=== PATIENT | male | born 1950 | race Two or more races ===

== ENCOUNTER 2023-03-07 02:43 | Inpatient (IN) | payer MEDICARE ==
[~2023-03-07] VITALS: Ht 172.7 cm; Wt 82.1 kg
[2023-03-07 06:44] LABS: BASOPHILS % 1.3 % (0.0-2.0); EOSINOPHILS % 2.9 % (0.0-5.0); HEMATOCRIT. 38.1 % (42.0-52.0); LYMPHOCYTES % 30.6 % (20.0-50.0); MEAN CORPUSCULAR HEMOGLOBIN 31.3 pg (28.0-32.0); MEAN CORPUSCULAR HGB CONC 34.3 g/dL (31.0-37.0); MEAN CORPUSCULAR VOLUME 91.3 fL (80.0-94.0); MEAN PLATELET VOLUME 8.6 fl (7.4-10.4); MONOCYTES % 12.3 % (2.0-8.0); NEUTROPHILS % 52.9 % (40.0-76.0); PLATELET 243 x1000/uL (130-400); RED BLOOD CELL COUNT 4.17 mill/uL (4.7-6.1); RED CELL DISTRIBUTION WIDTH 14.1 % (11.6-14.6); WHITE BLOOD COUNT 6.6 x1000/uL (4.5-11.0)
[2023-03-07 06:51] LABS: CHLORIDE 96 mEq/L (98-107); INDEX HEMOLYSI 1 (1-3); INDEX ICTERIC 1 (1-4); INDEX LIPEMIC 1 (1-3); POTASSIUM 4.6 mEq/L (3.5-5.1); SODIUM 126 mEq/L (136-145)
[2023-03-07 07:03] LABS: ALANINE AMINOTRANSFERASE 35 IU/L (13-61); ALBUMIN 3.7 g/dL (3.4-5.0); ASPARTATE AMINOTRANSFERASE 24 IU/L (15-37); CALCIUM 9.1 mg/dL (8.5-10.1); CARBON DIOXIDE 23 mEq/L (21-32); CREATININE 0.7 mg/dL (0.6-1.3); GLUCOSE 200 mg/dL (70-105); NT PRO B-TYPE NATRIURETIC PEP 1375 pg/mL (5-125); PROTEIN TOTAL 7.1 g/dL (6.0-8.3); UREA NITROGEN BLOOD 7 mg/dL (7-21)
[2023-03-07 07:09] LABS: TROPONIN I HIGH SENSITIVITY 101 ng/L (<78)
[2023-03-07 07:12] LABS: CLARITY URINE CLEAR (CLEAR); COLOR URINE YELLOW (YELLOW); GLUCOSE URINE TRACE (NEGATIVE); KETONES URINE 1+ (NEGATIVE); LEUKOCYTE ESTERASE URINE NEGATIVE (NEGATIVE); NITRITE URINE NEGATIVE (NEGATIVE); OCCULT BLOOD URINE NEGATIVE (NEGATIVE); PH URINE 6.5 (4.5-8.0); PROTEIN URINE TRACE (NEGATIVE)
[2023-03-07 07:15] LABS: BACTERIA URINE NONE SEEN; RBC URINE NONE SEEN /hpf (0-2); SQUAMOUS EPITHELIAL CELL URINE NONE SEEN /lpf (RARE/1+); WBC URINE NONE SEEN /hpf (0-2); YEAST URINE NONE SEEN
[2023-03-07] MEDS ORDERED: DEXTROSE 50% WATER 50ML SYRINGE IV PRN (10:15)
[2023-03-07] MEDS ORDERED: ACETAMINOPHEN 325MG TABLET PO PRN ×2 (10:15)
[2023-03-07] MEDS ORDERED: GUAIFENESIN 200MG/10ML SUGAR FREE UDC PO PRN (10:15)
[2023-03-07] MEDS ORDERED: ONDANSETRON HCL 4MG/2ML INJ IV PRN (10:15)
[2023-03-07] MEDS ORDERED: IPRATROPIUM/ALBUTEROL 0.5-3(2.5)MG/3ML NEB NEB PRN (10:15)
[2023-03-07] MEDS ORDERED: HYDRALAZINE HCL 25MG TABLET PO PRN (10:15)
[2023-03-07] MEDS ORDERED: MAGNESIUM/ALUMINUM HYDROXIDE/SIMETHICONE 30ML UDC PO PRN (10:15)
[2023-03-07] MEDS ORDERED: ENOXAPARIN 40MG/0.4ML SYR SUBCUT SCH (10:30)
[2023-03-07 12:29] LABS: CREATINE KINASE MB FRACTION 5.2 ng/mL (0.5-3.6)
[2023-03-07 14:30] VITALS: BP 138/87; PULSE 99; RESP 18; TEMP 98.1
[2023-03-07 15:30] VITALS: BP 138/87; PULSE 99; RESP 18; TEMP 98.1
[2023-03-07 16:00] VITALS: BP 138/91; PULSE 92; RESP 20; TEMP 98.2
[2023-03-07] MEDS: BLOOD SUGAR DIAGNOSTIC STRIP TEST SCH ×2 (17:55→20:44)
[2023-03-07] MEDS: SODIUM CHLORIDE 0.9% 1,000 ML IV SCH (17:56)
[2023-03-07] MEDS: INSULIN LISPRO 100 UNITS/ML SUBCUT SCH ×2 (18:11→20:44)
[2023-03-07 18:36] LABS: CREATINE KINASE MB FRACTION 4.9 ng/mL (0.5-3.6)
[2023-03-07 20:00] VITALS: BP 113/81; PULSE 89; RESP 18; TEMP 97.8
[2023-03-07] MEDS ORDERED: ENOXAPARIN 80MG/0.8ML SYR SUBCUT NR (20:00)
[2023-03-08] VITALS: BP 142/82; PULSE 93; RESP 20; TEMP 98.6
[2023-03-08 01:55] LABS: CREATINE KINASE MB FRACTION 4.2 ng/mL (0.5-3.6)
[2023-03-08 04:00] VITALS: BP 127/81; PULSE 88; RESP 20; TEMP 98
[2023-03-08] MEDS: BLOOD SUGAR DIAGNOSTIC STRIP TEST SCH ×4 (06:25→20:57)
[2023-03-08] MEDS: INSULIN LISPRO 100 UNITS/ML SUBCUT SCH ×4 (06:51→21:03)
[2023-03-08 07:05] LABS: INR 1.1; PROTHROMBIN TIME 11.3 sec (9.6-11.0)
[2023-03-08 08:00] VITALS: BP 104/64; PULSE 90; RESP 18; TEMP 97.5
[2023-03-08] MEDS ORDERED: PNEUMOCOCCAL 23-VAL P-SAC VAC 0.5 ML IM ONE (09:00)
[2023-03-08] MEDS: SODIUM CHLORIDE 0.9% 1,000 ML IV SCH ×3 (09:05→21:39)
[2023-03-08] MEDS: ASPIRIN 81MG TABLET PO SCH (09:07)
[2023-03-08] MEDS: ENOXAPARIN 80MG/0.8ML SYR SUBCUT SCH ×2 (09:08→21:02)
[2023-03-08 09:32] LABS: T4 FREE 1.27 ng/dL (0.76-1.46); THYROID STIMULATING HORMONE 1.2 uIU/mL (0.36-3.74)
[2023-03-08 12:00] VITALS: BP 126/85; PULSE 90; RESP 18; TEMP 97.8
[2023-03-08 16:00] VITALS: BP 131/85; PULSE 89; RESP 18; TEMP 97.7
[2023-03-08 20:00] VITALS: BP 121/77; PULSE 64; RESP 17; TEMP 97.5
[2023-03-09] VITALS: BP 122/75; PULSE 90; RESP 18; TEMP 97.5
[2023-03-09 04:00] VITALS: BP 143/76; PULSE 84; RESP 17; TEMP 97.5
[2023-03-09] MEDS: SODIUM CHLORIDE 0.9% 1,000 ML IV SCH ×2 (05:55→14:23)
[2023-03-09] MEDS: BLOOD SUGAR DIAGNOSTIC STRIP TEST SCH ×5 (06:20→20:30)
[2023-03-09] MEDS: INSULIN LISPRO 100 UNITS/ML SUBCUT SCH ×4 (06:29→20:51)
[2023-03-09 08:00] VITALS: BP 131/89; PULSE 88; RESP 19; TEMP 98
[2023-03-09] MEDS: ENOXAPARIN 80MG/0.8ML SYR SUBCUT SCH ×2 (09:07→20:32)
[2023-03-09] MEDS: ASPIRIN 81MG TABLET PO SCH (09:07)
[2023-03-09 12:00] VITALS: BP 138/76; PULSE 93; RESP 20; TEMP 97.8
[2023-03-09] MEDS: CARVEDILOL 3.125 MG TABLET PO SCH (12:35)
[2023-03-09] MEDS: LOSARTAN POTASSIUM 25 MG TABLET PO SCH (12:35)
[2023-03-09 16:00] VITALS: BP 136/78; PULSE 88; RESP 20; TEMP 97.4
[2023-03-09 20:00] VITALS: BP 114/78; PULSE 94; RESP 20; TEMP 97.3
[2023-03-10] VITALS: BP_SYST 112; BP_SYST 126; BP_DIAS 76; BP_DIAS 78; PULSE 87; PULSE 94; RESP 17; RESP 18; TEMP 97.3; TEMP 97.5
[2023-03-10] MEDS: SODIUM CHLORIDE 0.9% 1,000 ML IV SCH ×3 (03:03→21:45)
[2023-03-10 04:00] VITALS: BP 124/92; PULSE 90; RESP 17; TEMP 98
[2023-03-10] MEDS ORDERED: NICARDIPINE 100MCG/ML 10ML VIAL (CATH LAB) IV ONE (07:00)
[2023-03-10] MEDS ORDERED: NITROGLYCERIN 50MCG/ML 10ML VIAL (CATH LAB) IV ONE (07:00)
[2023-03-10] MEDS: BLOOD SUGAR DIAGNOSTIC STRIP TEST SCH ×4 (07:09→20:02)
[2023-03-10] MEDS: INSULIN LISPRO 100 UNITS/ML SUBCUT SCH ×4 (07:14→20:01)
[2023-03-10 08:00] VITALS: BP 146/89; PULSE 89; RESP 18; TEMP 97.7
[2023-03-10] MEDS: ASPIRIN 81MG TABLET PO SCH ×2 (08:45→14:32)
[2023-03-10] MEDS: ENOXAPARIN 80MG/0.8ML SYR SUBCUT SCH ×2 (08:45→20:02)
[2023-03-10] MEDS: LOSARTAN POTASSIUM 25 MG TABLET PO SCH ×2 (08:45→13:46)
[2023-03-10] MEDS: CARVEDILOL 3.125 MG TABLET PO SCH ×2 (08:45→13:45)
[2023-03-10] MEDS ORDERED: HEPARIN 1000 UNITS/ML 10ML ONE (09:01)
[2023-03-10] MEDS ORDERED: MIDAZOLAM HCL 2 MG/2 ML VIAL ONE (09:25)
[2023-03-10] MEDS ORDERED: FENTANYL CITRATE/PF 50MCG/ML 2ML VIAL ONE (09:25)
[2023-03-10] MEDS ORDERED: LIDOCAINE HCL/PF 2% 20MG/ML 5 ML/VIAL ONE (09:25)
[2023-03-10] MEDS ORDERED: IODIXANOL 320MG/ML 100 ML BOTTLE IV ONE (09:26)
[2023-03-10] MEDS ORDERED: ATROPINE SULFATE 1MG/10ML SYR IV PRN (09:30)
[2023-03-10 15:30] VITALS: BP 138/90; PULSE 91; RESP 16; TEMP 97.8
[2023-03-10 15:45] VITALS: BP 145/89; PULSE 91; RESP 15
[2023-03-10] MEDS ORDERED: FUROSEMIDE 40MG/4ML VIAL IVP NR (19:15)
[2023-03-10 20:00] VITALS: BP 148/111; PULSE 87; RESP 17; TEMP 97.7
[2023-03-11] VITALS: BP 147/75; PULSE 85; RESP 17; TEMP 97.8
[2023-03-11 04:00] VITALS: BP 131/76; PULSE 80; RESP 18; TEMP 97.4
[2023-03-11 06:30] LABS: BASOPHILS % 0.7 % (0.0-2.0); EOSINOPHILS % 4.8 % (0.0-5.0); HEMATOCRIT. 38.3 % (42.0-52.0); HEMOGLOBIN. 13.1 g/dL (14.0-18.0); LYMPHOCYTES % 22.3 % (20.0-50.0); MEAN CORPUSCULAR HEMOGLOBIN 31.4 pg (28.0-32.0); MEAN CORPUSCULAR HGB CONC 34.2 g/dL (31.0-37.0); MEAN CORPUSCULAR VOLUME 91.7 fL (80.0-94.0); MEAN PLATELET VOLUME 8.9 fl (7.4-10.4); MONOCYTES % 10.7 % (2.0-8.0); NEUTROPHILS % 61.5 % (40.0-76.0); PLATELET 244 x1000/uL (130-400); RED BLOOD CELL COUNT 4.17 mill/uL (4.7-6.1); RED CELL DISTRIBUTION WIDTH 14.4 % (11.6-14.6); WHITE BLOOD COUNT 7.5 x1000/uL (4.5-11.0)
[2023-03-11 06:42] LABS: CHLORIDE 94 mEq/L (98-107); INDEX HEMOLYSI 1 (1-3); INDEX ICTERIC 1 (1-4); INDEX LIPEMIC 1 (1-3); POTASSIUM 4.3 mEq/L (3.5-5.1); SODIUM 125 mEq/L (136-145)
[2023-03-11 06:49] LABS: CARBON DIOXIDE 26 mEq/L (21-32); CREATININE 0.8 mg/dL (0.6-1.3); GLUCOSE 169 mg/dL (70-105); PHOSPHORUS 3.7 mg/dL (2.5-4.9); UREA NITROGEN BLOOD 12 mg/dL (7-21)
[2023-03-11] MEDS: BLOOD SUGAR DIAGNOSTIC STRIP TEST SCH ×4 (06:50→22:18)
[2023-03-11] MEDS: SODIUM CHLORIDE 0.9% 1,000 ML IV SCH ×2 (07:45→17:31)
[2023-03-11 08:00] VITALS: BP 102/84; PULSE 87; RESP 14; TEMP 97.8
[2023-03-11] MEDS: CARVEDILOL 3.125 MG TABLET PO SCH (09:10)
[2023-03-11] MEDS: LOSARTAN POTASSIUM 25 MG TABLET PO SCH (09:10)
[2023-03-11] MEDS: ENOXAPARIN 80MG/0.8ML SYR SUBCUT SCH ×2 (09:11→22:32)
[2023-03-11] MEDS: INSULIN LISPRO 100 UNITS/ML SUBCUT SCH ×4 (09:15→22:32)
[2023-03-11 12:04] VITALS: BP 136/80; PULSE 75; RESP 18; TEMP 97.5
[2023-03-11 16:01] VITALS: BP 128/74; PULSE 82; RESP 20; TEMP 97.9
[2023-03-11 19:48] VITALS: BP 119/71; PULSE 81; RESP 22; TEMP 96.9
[2023-03-12] VITALS (8 sets, daily range): BP systolic 113–157; BP diastolic 66–86; PULSE 69–87; RESP 15–21; TEMP 97.7–98.3
[2023-03-12] MEDS: SODIUM CHLORIDE 0.9% 1,000 ML IV SCH ×3 (03:45→23:45)
[2023-03-12 05:22] LABS: BASOPHILS % 1.2 % (0.0-2.0); DIFFERENTIAL COMMENT 0; EOSINOPHILS % 7.4 % (0.0-5.0); HEMOGLOBIN. 12.5 g/dL (14.0-18.0); LYMPHOCYTES % 37.5 % (20.0-50.0); MEAN CORPUSCULAR HEMOGLOBIN 31.9 pg (28.0-32.0); MEAN CORPUSCULAR HGB CONC 34.7 g/dL (31.0-37.0); MEAN CORPUSCULAR VOLUME 91.9 fL (80.0-94.0); MEAN PLATELET VOLUME 8.8 fl (7.4-10.4); MONOCYTES % 13.8 % (2.0-8.0); NEUTROPHILS % 40.1 % (40.0-76.0); PLATELET 226 x1000/uL (130-400); RED BLOOD CELL COUNT 3.92 mill/uL (4.7-6.1); RED CELL DISTRIBUTION WIDTH 14.6 % (11.6-14.6); WHITE BLOOD COUNT 5.5 x1000/uL (4.5-11.0)
[2023-03-12 05:25] LABS: CHLORIDE 98 mEq/L (98-107); INDEX HEMOLYSI 1 (1-3); INDEX ICTERIC 1 (1-4); INDEX LIPEMIC 1 (1-3); POTASSIUM 4.1 mEq/L (3.5-5.1); SODIUM 128 mEq/L (136-145)
[2023-03-12 05:32] LABS: CALCIUM 8.5 mg/dL (8.5-10.1); CARBON DIOXIDE 24 mEq/L (21-32); CREATININE 0.7 mg/dL (0.6-1.3); PHOSPHORUS 4.2 mg/dL (2.5-4.9); UREA NITROGEN BLOOD 12 mg/dL (7-21)
[2023-03-12] MEDS: BLOOD SUGAR DIAGNOSTIC STRIP TEST SCH ×4 (06:48→21:14)
[2023-03-12] MEDS: ASPIRIN 81MG TABLET PO SCH (09:15)
[2023-03-12] MEDS: LOSARTAN POTASSIUM 25 MG TABLET PO SCH (09:16)
[2023-03-12] MEDS: CARVEDILOL 3.125 MG TABLET PO SCH (09:16)
[2023-03-12] MEDS: ENOXAPARIN 80MG/0.8ML SYR SUBCUT SCH ×2 (09:17→21:14)
[2023-03-12] MEDS: INSULIN LISPRO 100 UNITS/ML SUBCUT SCH ×4 (09:17→21:14)
[2023-03-12 10:08] LABS: GLUCOSE 171 mg/dL (70-105)
[2023-03-13] VITALS: BP 109/67; PULSE 80; RESP 15; TEMP 98.2
[2023-03-13 04:00] VITALS: BP 103/56; PULSE 69; RESP 18; TEMP 98.2
[2023-03-13] MEDS: BLOOD SUGAR DIAGNOSTIC STRIP TEST SCH ×4 (06:19→21:00)
[2023-03-13] MEDS: INSULIN LISPRO 100 UNITS/ML SUBCUT SCH ×4 (06:48→21:00)
[2023-03-13 08:00] VITALS: BP 124/74; PULSE 84; RESP 12; TEMP 97.9
[2023-03-13] MEDS: LOSARTAN POTASSIUM 25 MG TABLET PO SCH (08:34)
[2023-03-13] MEDS: ASPIRIN 81MG TABLET PO SCH (08:34)
[2023-03-13] MEDS: CARVEDILOL 3.125 MG TABLET PO SCH (08:34)
[2023-03-13] MEDS: ENOXAPARIN 80MG/0.8ML SYR SUBCUT SCH ×2 (08:35→20:55)
[2023-03-13] MEDS: SODIUM CHLORIDE 0.9% 1,000 ML IV SCH ×2 (08:35→19:45)
[2023-03-13 16:00] VITALS: BP 121/65; PULSE 85; RESP 14; TEMP 97.9
[2023-03-13] MEDS ORDERED: DICLOFENAC SODIUM 1% GEL 50GM TOP PRN (16:00)
[2023-03-13 20:00] VITALS: BP 122/74; PULSE 83; RESP 30; TEMP 98.5
[2023-03-14] VITALS: BP 116/64; PULSE 80; RESP 17; TEMP 98.3
[2023-03-14 04:00] VITALS: BP 103/51; PULSE 79; RESP 27; TEMP 97.9
[2023-03-14] MEDS: BLOOD SUGAR DIAGNOSTIC STRIP TEST SCH ×4 (06:38→21:00)
[2023-03-14] MEDS: SODIUM CHLORIDE 0.9% 1,000 ML IV SCH ×2 (06:38→15:45)
[2023-03-14 08:00] VITALS: BP 116/70; PULSE 85; RESP 15; TEMP 97.4
[2023-03-14] MEDS: INSULIN LISPRO 100 UNITS/ML SUBCUT SCH ×4 (08:05→22:11)
[2023-03-14] MEDS: CARVEDILOL 3.125 MG TABLET PO SCH (08:31)
[2023-03-14] MEDS: ASPIRIN 81MG TABLET PO SCH (08:31)
[2023-03-14] MEDS: LOSARTAN POTASSIUM 25 MG TABLET PO SCH (08:31)
[2023-03-14] MEDS: ENOXAPARIN 80MG/0.8ML SYR SUBCUT SCH ×2 (08:32→22:06)
[2023-03-14] MEDS ORDERED: NITROGLYCERIN 0.4MG TABLET SL SL PRN (10:45)
[2023-03-14] MEDS ORDERED: ALPRAZOLAM 0.25 MG TABLET PO PRN (10:45)
[2023-03-14] MEDS ORDERED: ACETAMINOPHEN 325MG TABLET PO PRN (10:45)
[2023-03-14 12:00] VITALS: BP 122/45; PULSE 80; RESP 16; TEMP 97.9
[2023-03-14] MEDS: SODIUM CHLORIDE 0.9% INJ 3ML FLUSH IVF SCH ×2 (13:36→22:12)
[2023-03-14 16:01] VITALS: BP 116/73; PULSE 75; RESP 18; TEMP 97.5
[2023-03-14 20:00] VITALS: BP 128/76; PULSE 83; RESP 16; TEMP 97.6
[2023-03-14] MEDS ORDERED: BISACODYL 10MG SUPP PR PRN (21:00)
[2023-03-14] MEDS ORDERED: DOCUSATE SODIUM 100MG CAPSULE PO SCH (21:00)
[2023-03-14] MEDS ORDERED: DIPHENHYDRAMINE 25MG CAPSULE PO PRN (21:00)
[2023-03-15] VITALS: BP 109/66; PULSE 75; RESP 10; TEMP 97.5
[2023-03-15] MEDS: SODIUM CHLORIDE 0.9% 1,000 ML IV SCH ×2 (01:45→11:45)
[2023-03-15 04:00] VITALS: PULSE 71; RESP 17
[2023-03-15] MEDS: BLOOD SUGAR DIAGNOSTIC STRIP TEST SCH ×4 (06:43→21:00)
[2023-03-15] MEDS: SODIUM CHLORIDE 0.9% INJ 3ML FLUSH IVF SCH ×3 (06:48→22:41)
[2023-03-15] MEDS: INSULIN LISPRO 100 UNITS/ML SUBCUT SCH ×4 (06:49→21:40)
[2023-03-15 08:00] VITALS: BP 113/70; PULSE 73; RESP 18; TEMP 97.6
[2023-03-15] MEDS: LOSARTAN POTASSIUM 25 MG TABLET PO SCH (08:40)
[2023-03-15] MEDS: ASPIRIN 81MG TABLET PO SCH (08:40)
[2023-03-15] MEDS: ENOXAPARIN 80MG/0.8ML SYR SUBCUT SCH (08:41)
[2023-03-15] MEDS: CARVEDILOL 3.125 MG TABLET PO SCH (08:43)
[2023-03-15 12:00] VITALS: BP 114/73; PULSE 77; RESP 18; TEMP 97.5
[2023-03-15 16:00] VITALS: BP 118/56; PULSE 75; RESP 18; TEMP 98.5
[2023-03-15] MEDS: CETIRIZINE 10MG TABLET PO SCH (17:55)
[2023-03-15 20:01] VITALS: BP 166/87; PULSE 84; RESP 21; TEMP 97.4
[2023-03-15] MEDS ORDERED: ASCORBIC ACID 500 MG TABLET PO SCH (21:00)
[2023-03-15] MEDS ORDERED: CHLORHEXIDINE GLUCONATE 4% EXTERNAL USE TOP SCH (21:00)
[2023-03-15] MEDS: ALLOPURINOL 300 MG TABLET PO SCH (21:38)
[2023-03-16] VITALS (73 sets, daily range): BP systolic 18–160; BP diastolic -2–88; PULSE 69–123; RESP 13–29; TEMP 95.7–100.9
[2023-03-16] MEDS: IPRATROPIUM/ALBUTEROL 0.5-3(2.5)MG/3ML NEB HHN SCH ×2 (00:58→21:33)
[2023-03-16] MEDS ORDERED: AMINOCAPROIC ACID 5,000 MG in SODIUM CHLORIDE 0.9% 250 ML IV NR (04:00)
[2023-03-16] MEDS ORDERED: INSULIN REGULAR 100U/100ML PMX 100 ML IV NR (04:00)
[2023-03-16] MEDS ORDERED: NOREPINEPHRINE 8MG/250ML PMX 250 ML IV NR (04:00)
[2023-03-16] MEDS ORDERED: EPINEPHRINE 5 MG in DEXT 5% WATER 250 ML IV NR (04:00)
[2023-03-16] MEDS ORDERED: CEFAZOLIN 2,000 MG in DEXT 5% WATER 100 ML IV SCH ×2 (04:00→12:00)
[2023-03-16] MEDS ORDERED: NICARDIPINE 40MG/200ML PREMIX 200 ML IV NR (04:00)
[2023-03-16] MEDS ORDERED: [UNRECOGNIZED DRUG - OTHER] IV NR ×2 (04:00)
[2023-03-16] MEDS ORDERED: DOBUTAMINE 250MG PREMIX 250 ML IV SCH (04:00)
[2023-03-16] MEDS ORDERED: DOPAMINE 400MG/250ML PREMIX 250 ML IV NR (04:00)
[2023-03-16] MEDS ORDERED: PAPAVERINE HCL 180MG in SODIUM CHLORIDE 0.9% 24ML IV NR (04:00)
[2023-03-16] MEDS: ALLOPURINOL 300 MG TABLET PO SCH (04:59)
[2023-03-16] MEDS: BLOOD SUGAR DIAGNOSTIC STRIP TEST SCH ×11 (05:00→23:00)
[2023-03-16] MEDS: INSULIN LISPRO 100 UNITS/ML SUBCUT SCH ×2 (05:03→11:58)
[2023-03-16] MEDS: SODIUM CHLORIDE 0.9% INJ 3ML FLUSH IVF SCH ×3 (05:03→22:00)
[2023-03-16] MEDS ORDERED: DOPAMINE 400MG/250ML PREMIX 250 ML IV ONE (05:49)
[2023-03-16] MEDS ORDERED: HEPARIN 1000 UNITS/ML 10ML ONE (05:49)
[2023-03-16] MEDS ORDERED: NICARDIPINE 40MG/200ML PREMIX 200 ML IV ONE (05:51)
[2023-03-16] MEDS ORDERED: POLYMYXIN B SULFATE 500000 UNITS/VIAL ONE (06:06)
[2023-03-16] MEDS ORDERED: THROMBIN (BOVINE) 5000 UNITS/VIAL TOP ONE ×2 (06:07)
[2023-03-16] MEDS ORDERED: SKIN ADHESIVE 0.7 GM EA TOP ONE (06:08)
[2023-03-16] MEDS ORDERED: ROCURONIUM BROMIDE 10MG/ML VIAL 5ML IV ONE ×2 (06:56→09:16)
[2023-03-16] MEDS ORDERED: PROPOFOL 10MG/ML 100ML 100 ML IV ONE ×3 (06:56→13:39)
[2023-03-16] MEDS ORDERED: PROPOFOL 200MG/20ML VIAL IV ONE (06:57)
[2023-03-16] MEDS ORDERED: HYDROMORPHONE HCL/PF 2MG/ML CPJ ONE (06:57)
[2023-03-16 07:07] LABS: BASOPHILS % 0.8 % (0.0-2.0); DIFFERENTIAL COMMENT 0; EOSINOPHILS % 11.3 % (0.0-5.0); HEMATOCRIT. 38.8 % (42.0-52.0); HEMOGLOBIN. 13.9 g/dL (14.0-18.0); LYMPHOCYTES % 32.4 % (20.0-50.0); MEAN CORPUSCULAR HGB CONC 35.7 g/dL (31.0-37.0); MEAN CORPUSCULAR VOLUME 92.5 fL (80.0-94.0); MONOCYTES % 13.2 % (2.0-8.0); NEUTROPHILS % 42.3 % (40.0-76.0); PLATELET 228 x1000/uL (130-400); RED BLOOD CELL COUNT 4.19 mill/uL (4.7-6.1); WHITE BLOOD COUNT 4.6 x1000/uL (4.5-11.0)
[2023-03-16] MEDS ORDERED: CALCIUM CHLORIDE 1GM/10ML SYR IV ONE (07:35)
[2023-03-16] MEDS ORDERED: BLOOD SUGAR DIAGNOSTIC STRIP TEST SCH ×2 (08:00→20:00)
[2023-03-16 08:46] LABS: CHLORIDE 94 mEq/L (98-107); INDEX HEMOLYSI 1 (1-3); INDEX ICTERIC 1 (1-4); INDEX LIPEMIC 1 (1-3); POTASSIUM 4.8 mEq/L (3.5-5.1); SODIUM 126 mEq/L (136-145)
[2023-03-16 08:55] LABS: CALCIUM 9.1 mg/dL (8.5-10.1); CARBON DIOXIDE 25 mEq/L (21-32); CREATININE 0.7 mg/dL (0.6-1.3); GLUCOSE 126 mg/dL (70-105); UREA NITROGEN BLOOD 12 mg/dL (7-21)
[2023-03-16] MEDS ORDERED: CHLORHEXIDINE GLUCONATE 4% EXTERNAL USE TOP SCH (09:00)
[2023-03-16] MEDS: CETIRIZINE 10MG TABLET PO SCH ×2 (09:00→17:44)
[2023-03-16] MEDS: LOSARTAN POTASSIUM 25 MG TABLET PO SCH (09:00)
[2023-03-16] MEDS: ASPIRIN 81MG TABLET PO SCH (09:00)
[2023-03-16] MEDS: CARVEDILOL 3.125 MG TABLET PO SCH (09:00)
[2023-03-16] MEDS ORDERED: SODIUM BICARBONATE 8.4% 1 MEQ/ML 50ML SYR IV ONE ×3 (11:17→23:45)
[2023-03-16 12:38] LABS: BASOPHILS % 0.2 % (0.0-2.0); EOSINOPHILS % 0.8 % (0.0-5.0); HEMATOCRIT. 27.1 % (42.0-52.0); HEMOGLOBIN. 9.7 g/dL (14.0-18.0); MEAN CORPUSCULAR HEMOGLOBIN 32.8 pg (28.0-32.0); MEAN CORPUSCULAR HGB CONC 35.8 g/dL (31.0-37.0); MEAN CORPUSCULAR VOLUME 91.5 fL (80.0-94.0); MEAN PLATELET VOLUME 8.6 fl (7.4-10.4); MONOCYTES % 1.3 % (2.0-8.0); NEUTROPHILS % 84.7 % (40.0-76.0); PLATELET 151 x1000/uL (130-400); RED BLOOD CELL COUNT 2.96 mill/uL (4.7-6.1); RED CELL DISTRIBUTION WIDTH 13.8 % (11.6-14.6); WHITE BLOOD COUNT 9.7 x1000/uL (4.5-11.0)
[2023-03-16 12:45] LABS: INR 1.3; PARTIAL THROMBOPLASTIN TIME 32.8 sec (23.4-31.0)
[2023-03-16 13:20] LABS: CHLORIDE 94 mEq/L (98-107); INDEX HEMOLYSI 4 (1-3); INDEX ICTERIC 1 (1-4); INDEX LIPEMIC 1 (1-3); SODIUM 133 mEq/L (136-145)
[2023-03-16] MEDS ORDERED: ALBUMIN HUMAN 25GM/100ML (25%) IV ONE (13:22)
[2023-03-16] MEDS ORDERED: IPRATROPIUM/ALBUTEROL 0.5-3(2.5)MG/3ML NEB HHN PRN (13:45)
[2023-03-16 13:55] LABS: ALANINE AMINOTRANSFERASE 35 IU/L (13-61); ALBUMIN 3.3 g/dL (3.4-5.0); ASPARTATE AMINOTRANSFERASE 43 IU/L (15-37); BILIRUBIN TOTAL 0.7 mg/dL (0.1-1.0); CARBON DIOXIDE 25 mEq/L (21-32); CREATININE 0.7 mg/dL (0.6-1.3); GLUCOSE 118 mg/dL (70-105); PHOSPHORUS 1.1 mg/dL (2.5-4.9); PROTEIN TOTAL 5.4 g/dL (6.0-8.3); UREA NITROGEN BLOOD 10 mg/dL (7-21)
[2023-03-16] MEDS ORDERED: PROTAMINE SULFATE 10MG/ML VIAL 25ML IV ONE (13:59)
[2023-03-16] MEDS ORDERED: CALCIUM CHLORIDE 3,000 MG in DEXT 5% WATER 250 ML IV PRN (14:00)
[2023-03-16] MEDS ORDERED: ONDANSETRON HCL 4MG/2ML INJ IV PRN (14:00)
[2023-03-16] MEDS ORDERED: OXYCODONE HCL/ACETAMINOPHEN 5/325MG TABLET PO PRN ×2 (14:00)
[2023-03-16] MEDS ORDERED: MAGNESIUM SULFATE 3 GM in DEXT 5% WATER 100 ML IV PRN (14:00)
[2023-03-16] MEDS ORDERED: ALBUMIN HUMAN 12.5G/250ML (5%) IV PRN (14:00)
[2023-03-16] MEDS ORDERED: SODIUM CHLORIDE 0.9% 500 ML IV PRN (14:00)
[2023-03-16] MEDS ORDERED: ACETAMINOPHEN 650MG SUPP PR PRN (14:00)
[2023-03-16 14:01] LABS: POTASSIUM 4.1 mEq/L (3.5-5.1)
[2023-03-16] MEDS ORDERED: NALOXONE HCL 0.4MG/ML VIAL IV PRN (14:15)
[2023-03-16 14:22] LABS: BG BASE EXCESS -0.7 mmol/L (-2.0-2.0); BG CARBOXYHEMOGLOBIN 0.4 % (0.5-1.5); BG DEOXYHEMOGLOBIN 1.4 % (0.0-5.0); BG FRACTION INSPIRED OXYGEN 100; BG HCO3 ACT 25.1 mmol/L (22.0-26.0); BG METHEMOGLOBIN 0.4 % (0.0-1.5); BG OXYGEN SATURATION 98.6 % (92.0-98.5); BG OXYHEMOGLOBIN 97.8 % (94.0-97.0); BG PCO2 46.7 mmHg (35.0-45.0); BG PH 7.349 (7.350-7.450); BG PO2 234.5 mmHg (75.0-100.0); BG SAMPLE SITE ALINE; BG TOTAL HEMOGLOBIN 10.3 g/dL (12.0-18.0); BG TOTAL RESPIRATORY RATE 14 b/min; BG VENT MODE VENT - AC
[2023-03-16 15:15] LABS: BG CALCIUM 1.02 mmol/L (1.13-1.32); BG CHLORIDE 94 mmol/L (98-106); BG POTASSIUM 5.14 mmol/L (3.50-5.30); BG SODIUM 126.9 mmol/L (135.0-148.0)
[2023-03-16] MEDS ORDERED: ALBUMIN HUMAN 12.5G/250ML (5%) IV NR (15:15)
[2023-03-16] MEDS: FAMOTIDINE 20MG/2ML VIAL IV SCH (15:43)
[2023-03-16] MEDS: MAGNESIUM HYDROXIDE 400MG/5ML 30ML UDC PO SCH ×3 (15:44→22:00)
[2023-03-16] MEDS: DEXT 5%/0.45% NACL 1000ML 1,000 ML IV SCH (15:44)
[2023-03-16] MEDS: CEFAZOLIN 1000MG PREMIX 50 ML IV SCH (15:44)
[2023-03-16 15:46] LABS: BG BASE EXCESS -2.9 mmol/L (-2.0-2.0); BG CARBOXYHEMOGLOBIN 0.3 % (0.5-1.5); BG DEOXYHEMOGLOBIN 2.1 % (0.0-5.0); BG FRACTION INSPIRED OXYGEN 60; BG HCO3 ACT 22.6 mmol/L (22.0-26.0); BG METHEMOGLOBIN 0.4 % (0.0-1.5); BG OXYGEN SATURATION 97.9 % (92.0-98.5); BG OXYHEMOGLOBIN 97.2 % (94.0-97.0); BG PCO2 42.1 mmHg (35.0-45.0); BG PH 7.347 (7.350-7.450); BG PO2 134.3 mmHg (75.0-100.0); BG SAMPLE SITE ALINE; BG TOTAL HEMOGLOBIN 9.5 g/dL (12.0-18.0); BG TOTAL RESPIRATORY RATE 16 b/min; BG VENT MODE VENT - AC
[2023-03-16] MEDS ORDERED: KCL 10MEQ/50ML PREMIX 200 ML IV PRN (16:15)
[2023-03-16] MEDS ORDERED: KCL 10MEQ/50ML PREMIX 150 ML IV PRN (16:15)
[2023-03-16 16:57] LABS: INR 1.2; PARTIAL THROMBOPLASTIN TIME 51.8 sec (23.4-31.0); PROTHROMBIN TIME 12.9 sec (9.6-11.0)
[2023-03-16] MEDS: DOCUSATE SODIUM 100MG CAPSULE PO SCH (17:44)
[2023-03-16] MEDS: ACETAMINOPHEN 325MG TABLET PO PRN (18:22)
[2023-03-16 18:41] LABS: HEMATOCRIT. 21.4 % (42.0-52.0); HEMOGLOBIN. 7.3 g/dL (14.0-18.0); MEAN CORPUSCULAR HEMOGLOBIN 31.4 pg (28.0-32.0); MEAN CORPUSCULAR HGB CONC 34.1 g/dL (31.0-37.0); MEAN PLATELET VOLUME 8.9 fl (7.4-10.4); PLATELET 134 x1000/uL (130-400); RED BLOOD CELL COUNT 2.33 mill/uL (4.7-6.1); RED CELL DISTRIBUTION WIDTH 14.1 % (11.6-14.6); WHITE BLOOD COUNT 7.7 x1000/uL (4.5-11.0)
[2023-03-16 18:46] LABS: DIFFERENTIAL COMMENT 1
[2023-03-16 18:49] LABS: CHLORIDE 104 mEq/L (98-107); INDEX HEMOLYSI 1 (1-3); INDEX ICTERIC 1 (1-4); INDEX LIPEMIC 1 (1-3); SODIUM 139 mEq/L (136-145)
[2023-03-16 18:50] LABS: CALCIUM 9.2 mg/dL (8.5-10.1)
[2023-03-16 18:54] LABS: CARBON DIOXIDE 22 mEq/L (21-32); GLUCOSE 239 mg/dL (70-105); UREA NITROGEN BLOOD 12 mg/dL (7-21)
[2023-03-16 20:21] LABS: PLATELET ESTIMATE NORMAL
[2023-03-16] MEDS: INSULIN REGULAR 100U/100ML PMX 100 ML IV SCH (21:45)
[2023-03-16] MEDS: MORPHINE SULFATE 2 MG/ML CPJ (NOT FOR IM USE) IV PRN (22:19)
[2023-03-16 23:25] LABS: BG BASE EXCESS -7.6 mmol/L (-2.0-2.0); BG CARBOXYHEMOGLOBIN 0.3 % (0.5-1.5); BG DEOXYHEMOGLOBIN 2.7 % (0.0-5.0); BG FRACTION INSPIRED OXYGEN 40; BG HCO3 ACT 16.7 mmol/L (22.0-26.0); BG METHEMOGLOBIN 0.1 % (0.0-1.5); BG OXYGEN SATURATION 97.3 % (92.0-98.5); BG OXYHEMOGLOBIN 96.9 % (94.0-97.0); BG PCO2 29.8 mmHg (35.0-45.0); BG PH 7.367 (7.350-7.450); BG PO2 112.9 mmHg (75.0-100.0); BG SAMPLE SITE ALINE; BG TOTAL HEMOGLOBIN 9.4 g/dL (12.0-18.0); BG VENT MODE VENT - CPAP
[2023-03-16 23:51] LABS: HEMATOCRIT. 24.5 % (42.0-52.0); HEMOGLOBIN. 8.5 g/dL (14.0-18.0); MEAN CORPUSCULAR HEMOGLOBIN 31.9 pg (28.0-32.0); MEAN CORPUSCULAR HGB CONC 34.8 g/dL (31.0-37.0); MEAN CORPUSCULAR VOLUME 91.9 fL (80.0-94.0); MEAN PLATELET VOLUME 8.5 fl (7.4-10.4); PLATELET 143 x1000/uL (130-400); RED BLOOD CELL COUNT 2.66 mill/uL (4.7-6.1); RED CELL DISTRIBUTION WIDTH 14.1 % (11.6-14.6); WHITE BLOOD COUNT 8.4 x1000/uL (4.5-11.0)
[2023-03-17] VITALS (107 sets, daily range): BP systolic 1–165; BP diastolic -4–151; PULSE 102–149; RESP 17–54; TEMP 98.4–100.1; O2SAT 94–97
[2023-03-17] MEDS ORDERED: SODIUM BICARBONATE 8.4% 1 MEQ/ML 50ML SYR IV NR
[2023-03-17 00:01] LABS: DIFFERENTIAL COMMENT 1
[2023-03-17 00:05] LABS: INR 1.2; PROTHROMBIN TIME 12.3 sec (9.6-11.0)
[2023-03-17 00:13] LABS: CHLORIDE 110 mEq/L (98-107); INDEX HEMOLYSI 1 (1-3); INDEX ICTERIC 1 (1-4); INDEX LIPEMIC 1 (1-3); POTASSIUM 3.7 mEq/L (3.5-5.1); SODIUM 142 mEq/L (136-145)
[2023-03-17 00:14] LABS: CALCIUM 8.5 mg/dL (8.5-10.1)
[2023-03-17 00:18] LABS: CARBON DIOXIDE 19 mEq/L (21-32); CREATININE 1.1 mg/dL (0.6-1.3); GLUCOSE 200 mg/dL (70-105); UREA NITROGEN BLOOD 14 mg/dL (7-21)
[2023-03-17] MEDS: MORPHINE SULFATE 2 MG/ML CPJ (NOT FOR IM USE) IV PRN (00:21)
[2023-03-17] MEDS: CEFAZOLIN 1000MG PREMIX 50 ML IV SCH ×3 (00:42→21:29)
[2023-03-17] MEDS: IPRATROPIUM/ALBUTEROL 0.5-3(2.5)MG/3ML NEB HHN SCH ×6 (00:58→20:52)
[2023-03-17] MEDS: BLOOD SUGAR DIAGNOSTIC STRIP TEST SCH ×21 (01:14→21:00)
[2023-03-17] MEDS: NOREPINEPHRINE 8 MG in DEXT 5% WATER 242 ML IV PRN ×4 (01:16→15:16)
[2023-03-17 01:34] LABS: BG BASE EXCESS 0.6 mmol/L (-2.0-2.0); BG CARBOXYHEMOGLOBIN 0.4 % (0.5-1.5); BG DEOXYHEMOGLOBIN 7.4 % (0.0-5.0); BG FRACTION INSPIRED OXYGEN 35; BG HCO3 ACT 24.9 mmol/L (22.0-26.0); BG METHEMOGLOBIN 0.6 % (0.0-1.5); BG OXYGEN SATURATION 92.5 % (92.0-98.5); BG OXYHEMOGLOBIN 91.6 % (94.0-97.0); BG PCO2 38.3 mmHg (35.0-45.0); BG PH 7.431 (7.350-7.450); BG SAMPLE SITE ALINE; BG TOTAL HEMOGLOBIN 8.8 g/dL (12.0-18.0); BG VENT MODE COOL AEROSOL
[2023-03-17] MEDS: MAGNESIUM HYDROXIDE 400MG/5ML 30ML UDC PO SCH ×4 (02:00→14:00)
[2023-03-17] MEDS: KCL 10MEQ/50ML PREMIX 100 ML IV PRN (02:42)
[2023-03-17] MEDS: LORAZEPAM 2MG/ML CPJ IM PRN ×2 (03:11→09:39)
[2023-03-17 06:59] LABS: BASOPHILS % 0.1 % (0.0-2.0); LYMPHOCYTES % 10.7 % (20.0-50.0); MEAN CORPUSCULAR VOLUME 91.5 fL (80.0-94.0); MONOCYTES % 14.2 % (2.0-8.0); PLATELET 114 x1000/uL (130-400); RED BLOOD CELL COUNT 2.19 mill/uL (4.7-6.1); RED CELL DISTRIBUTION WIDTH 14.3 % (11.6-14.6); WHITE BLOOD COUNT 9.4 x1000/uL (4.5-11.0)
[2023-03-17 07:42] LABS: POTASSIUM 4.7 mEq/L (3.5-5.1)
[2023-03-17 07:57] LABS: CALCIUM 8.5 mg/dL (8.5-10.1); CREATININE 1.2 mg/dL (0.6-1.3); PHOSPHORUS 5.6 mg/dL (2.5-4.9)
[2023-03-17 07:57] LABS: BG BASE EXCESS -1.8 mmol/L (-2.0-2.0); BG FRACTION INSPIRED OXYGEN 28; BG HCO3 ACT 21.3 mmol/L (22.0-26.0); BG METHEMOGLOBIN 0.6 % (0.0-1.5); BG OXYGEN SATURATION 90.9 % (92.0-98.5); BG OXYHEMOGLOBIN 90.4 % (94.0-97.0); BG PCO2 29.5 mmHg (35.0-45.0); BG PH 7.477 (7.350-7.450); BG PO2 62.6 mmHg (75.0-100.0); BG SAMPLE SITE ALINE; BG TOTAL HEMOGLOBIN 7.6 g/dL (12.0-18.0); BG VENT MODE COOL AEROSOL
[2023-03-17 08:23] LABS: ALBUMIN 3.6 g/dL (3.4-5.0); BILIRUBIN DIRECT 0.3 mg/dL (0.0-0.2); BILIRUBIN TOTAL 1.2 mg/dL (0.1-1.0); PROTEIN TOTAL 5.5 g/dL (6.0-8.3)
[2023-03-17 08:42] LABS: PLATELET ESTIMATE NORMAL
[2023-03-17] MEDS: DOCUSATE SODIUM 100MG CAPSULE PO SCH ×2 (09:00→17:00)
[2023-03-17] MEDS: CETIRIZINE 10MG TABLET PO SCH ×2 (09:00→17:00)
[2023-03-17] MEDS: CARVEDILOL 3.125 MG TABLET PO SCH (09:00)
[2023-03-17] MEDS: LOSARTAN POTASSIUM 25 MG TABLET PO SCH (09:00)
[2023-03-17] MEDS: ASPIRIN 81MG TABLET PO SCH (09:00)
[2023-03-17 09:55] LABS: BG BASE EXCESS -3.4 mmol/L (-2.0-2.0); BG CARBOXYHEMOGLOBIN 0.2 % (0.5-1.5); BG DEOXYHEMOGLOBIN 5.7 % (0.0-5.0); BG FRACTION INSPIRED OXYGEN 100; BG HCO3 ACT 20.6 mmol/L (22.0-26.0); BG METHEMOGLOBIN 0.1 % (0.0-1.5); BG OXYGEN SATURATION 94.3 % (92.0-98.5); BG PCO2 32.3 mmHg (35.0-45.0); BG PH 7.423 (7.350-7.450); BG PO2 81.1 mmHg (75.0-100.0); BG SAMPLE SITE ALINE; BG TOTAL HEMOGLOBIN 7.3 g/dL (12.0-18.0); BG VENT MODE MASK - NRB
[2023-03-17] MEDS: DEXT 5%/0.45% NACL 1000ML 1,000 ML IV SCH (11:25)
[2023-03-17] MEDS: FAMOTIDINE 20MG/2ML VIAL IV SCH (11:27)
[2023-03-17] MEDS: INSULIN REGULAR 100U/100ML PMX 100 ML IV SCH (11:29)
[2023-03-17 13:08] LABS: BG BASE EXCESS -1.5 mmol/L (-2.0-2.0); BG CARBOXYHEMOGLOBIN 0.3 % (0.5-1.5); BG DEOXYHEMOGLOBIN 5.9 % (0.0-5.0); BG FRACTION INSPIRED OXYGEN 100; BG HCO3 ACT 22.4 mmol/L (22.0-26.0); BG METHEMOGLOBIN 0.1 % (0.0-1.5); BG OXYGEN SATURATION 94.1 % (92.0-98.5); BG OXYHEMOGLOBIN 93.7 % (94.0-97.0); BG PCO2 34.1 mmHg (35.0-45.0); BG PH 7.435 (7.350-7.450); BG PO2 75.2 mmHg (75.0-100.0); BG SAMPLE SITE ALINE; BG TOTAL HEMOGLOBIN 9.1 g/dL (12.0-18.0); BG VENT MODE MASK - NRB
[2023-03-17] MEDS ORDERED: FUROSEMIDE 20MG/2ML VIAL IVP NR ×2 (13:15→15:45)
[2023-03-17] MEDS ORDERED: CEFAZOLIN 1000MG PREMIX 50 ML IV SCH (14:00)
[2023-03-17] MEDS: SODIUM CHLORIDE 0.9% INJ 3ML FLUSH IVF SCH ×2 (14:00→22:00)
[2023-03-17] MEDS: MAGNESIUM 1 G PREMIX 100 ML IV PRN ×2 (14:02→15:45)
[2023-03-17 14:09] LABS: AMMONIA 37 uMol/L (<32)
[2023-03-17 14:11] LABS: CHLORIDE 110 mEq/L (98-107); INDEX HEMOLYSI 1 (1-3); INDEX ICTERIC 1 (1-4); INDEX LIPEMIC 1 (1-3); POTASSIUM 4.5 mEq/L (3.5-5.1); SODIUM 145 mEq/L (136-145)
[2023-03-17 14:28] LABS: ALANINE AMINOTRANSFERASE 193 IU/L (13-61); ALBUMIN 3.8 g/dL (3.4-5.0); ASPARTATE AMINOTRANSFERASE 217 IU/L (15-37); BILIRUBIN TOTAL 1.7 mg/dL (0.1-1.0); CALCIUM 8.6 mg/dL (8.5-10.1); CARBON DIOXIDE 23 mEq/L (21-32); CREATININE 1.3 mg/dL (0.6-1.3); GLUCOSE 114 mg/dL (70-105); PROTEIN TOTAL 5.6 g/dL (6.0-8.3); UREA NITROGEN BLOOD 22 mg/dL (7-21)
[2023-03-17] MEDS: DEXMEDETOMIDINE 400 MCG/100 ML 100 ML IV PRN ×2 (15:45→21:48)
[2023-03-17] MEDS ORDERED: LORAZEPAM 2MG/ML CPJ IV NR ×3 (16:30→18:15)
[2023-03-17 17:29] LABS: BG BASE EXCESS 2.2 mmol/L (-2.0-2.0); BG CARBOXYHEMOGLOBIN 0.3 % (0.5-1.5); BG DEOXYHEMOGLOBIN 6.5 % (0.0-5.0); BG FRACTION INSPIRED OXYGEN 100; BG HCO3 ACT 24.7 mmol/L (22.0-26.0); BG METHEMOGLOBIN 0.2 % (0.0-1.5); BG OXYGEN SATURATION 93.5 % (92.0-98.5); BG PH 7.519 (7.350-7.450); BG PO2 67.7 mmHg (75.0-100.0); BG SAMPLE SITE ALINE; BG TOTAL HEMOGLOBIN 10.6 g/dL (12.0-18.0); BG VENT MODE VAPOTHERM
[2023-03-17 17:47] LABS: HEMATOCRIT 28.4 % (42.0-52.0); HEMOGLOBIN 9.9 g/dL (14.0-18.0)
[2023-03-17] MEDS ORDERED: THIAMINE HCL 100 MG in SODIUM CHLORIDE 0.9% 49 ML IV NR (18:00)
[2023-03-18] VITALS (111 sets, daily range): BP systolic 70–163; BP diastolic 37–120; PULSE 99–121; RESP 13–40; TEMP 98.6–100.1; O2SAT 95–100
[2023-03-18] MEDS: IPRATROPIUM/ALBUTEROL 0.5-3(2.5)MG/3ML NEB HHN SCH ×6 (00:23→20:55)
[2023-03-18] MEDS: DEXMEDETOMIDINE 400 MCG/100 ML 100 ML IV PRN ×2 (04:08→13:30)
[2023-03-18 06:36] LABS: BG BASE EXCESS 3.2 mmol/L (-2.0-2.0); BG CARBOXYHEMOGLOBIN 0.3 % (0.5-1.5); BG DEOXYHEMOGLOBIN 4.5 % (0.0-5.0); BG FRACTION INSPIRED OXYGEN 100; BG HCO3 ACT 26.2 mmol/L (22.0-26.0); BG METHEMOGLOBIN 0.2 % (0.0-1.5); BG OXYGEN SATURATION 95.5 % (92.0-98.5); BG PCO2 34.1 mmHg (35.0-45.0); BG PH 7.504 (7.350-7.450); BG PO2 82.7 mmHg (75.0-100.0); BG SAMPLE SITE ALINE; BG TOTAL HEMOGLOBIN 9.6 g/dL (12.0-18.0); BG VENT MODE HIGH FLOW
[2023-03-18 06:53] LABS: BASOPHILS % 0.1 % (0.0-2.0); HEMATOCRIT. 25.8 % (42.0-52.0); MEAN CORPUSCULAR HEMOGLOBIN 30.3 pg (28.0-32.0); MEAN CORPUSCULAR HGB CONC 34.9 g/dL (31.0-37.0); MEAN CORPUSCULAR VOLUME 86.7 fL (80.0-94.0); MEAN PLATELET VOLUME 9.5 fl (7.4-10.4); MONOCYTES % 11.9 % (2.0-8.0); PLATELET 103 x1000/uL (130-400); RED BLOOD CELL COUNT 2.97 mill/uL (4.7-6.1); RED CELL DISTRIBUTION WIDTH 16.3 % (11.6-14.6); WHITE BLOOD COUNT 14.4 x1000/uL (4.5-11.0)
[2023-03-18 07:10] LABS: CALCIUM 8.3 mg/dL (8.5-10.1); CARBON DIOXIDE 29 mEq/L (21-32); CHLORIDE 108 mEq/L (98-107); GLUCOSE 117 mg/dL (70-105); INDEX HEMOLYSI 1 (1-3); INDEX ICTERIC 1 (1-4); INDEX LIPEMIC 1 (1-3); POTASSIUM 3.8 mEq/L (3.5-5.1); SODIUM 141 mEq/L (136-145); UREA NITROGEN BLOOD 24 mg/dL (7-21)
[2023-03-18 07:14] LABS: PHOSPHORUS 2.6 mg/dL (2.5-4.9)
[2023-03-18 07:21] LABS: AMMONIA 35 uMol/L (<32); INDEX HEMOLYSI 1 (1-3)
[2023-03-18 07:28] LABS: ALBUMIN 3.6 g/dL (3.4-5.0); BILIRUBIN DIRECT 0.3 mg/dL (0.0-0.2); PROTEIN TOTAL 5.7 g/dL (6.0-8.3)
[2023-03-18] MEDS: BLOOD SUGAR DIAGNOSTIC STRIP TEST SCH ×13 (07:33→22:00)
[2023-03-18] MEDS: LORAZEPAM 2MG/ML CPJ IM PRN ×4 (07:38→21:28)
[2023-03-18 07:51] LABS: VITAMIN B12 SERUM >2000 pg/mL pg/mL (211-911)
[2023-03-18 08:04] LABS: HEPATITIS B SURFACE ANTIGEN NEGATIVE
[2023-03-18 08:32] LABS: HEPATITIS B CORE AB IGM NEGATIVE; HEPATITIS C VIR.AB 0.13 INDEXVAL (0.00-0.80)
[2023-03-18 08:34] LABS: HEPATITIS A AB IGM NEGATIVE (NEGATIVE)
[2023-03-18] MEDS: MAGNESIUM 2 G PREMIX 50 ML IV PRN (08:50)
[2023-03-18] MEDS: KCL 10MEQ/50ML PREMIX 100 ML IV PRN ×2 (08:50→10:24)
[2023-03-18] MEDS ORDERED: CETIRIZINE 10MG TABLET PO SCH (09:00)
[2023-03-18] MEDS: FAMOTIDINE 20MG/2ML VIAL IV SCH (09:14)
[2023-03-18] MEDS: CETIRIZINE 10MG TABLET PO SCH (09:14)
[2023-03-18] MEDS: ASPIRIN 81MG TABLET PO SCH (09:14)
[2023-03-18] MEDS: CARVEDILOL 3.125 MG TABLET PO SCH (09:14)
[2023-03-18] MEDS: DOCUSATE SODIUM 100MG CAPSULE PO SCH ×2 (09:14→16:19)
[2023-03-18] MEDS: LOSARTAN POTASSIUM 25 MG TABLET PO SCH (09:14)
[2023-03-18 11:13] LABS: FERRITIN 2144 ng/mL (22-322)
[2023-03-18] MEDS ORDERED: FUROSEMIDE 20MG/2ML VIAL IVP NR ×2 (11:15→16:30)
[2023-03-18] MEDS: NOREPINEPHRINE 8 MG in DEXT 5% WATER 242 ML IV PRN ×2 (11:39→16:46)
[2023-03-18] MEDS: ACETAMINOPHEN 325MG TABLET PO PRN (12:52)
[2023-03-18] MEDS: BACITRACIN 15GM TUBE TOP SCH ×2 (14:06→21:52)
[2023-03-18] MEDS: SODIUM CHLORIDE 0.9% INJ 3ML FLUSH IVF SCH ×2 (14:06→22:00)
[2023-03-18] MEDS: INSULIN REGULAR 100U/100ML PMX 100 ML IV SCH (16:04)
[2023-03-18] MEDS ORDERED: LACTULOSE 20G/30ML UDC PO NR (16:15)
[2023-03-18] MEDS: LACTULOSE 20G/30ML UDC PO SCH ×2 (16:19→21:27)
[2023-03-18 17:41] LABS: ALBUMIN 3.6 g/dL (3.4-5.0); BILIRUBIN DIRECT 0.3 mg/dL (0.0-0.2); BILIRUBIN TOTAL 1.2 mg/dL (0.1-1.0); PROTEIN TOTAL 5.8 g/dL (6.0-8.3)
[2023-03-18] MEDS ORDERED: VANCOMYCIN 1500MG in DEXTROSE 5% WATER 250ML IV NR (18:00)
[2023-03-18] MEDS: CEFEPIME 2,000 MG in DEXT 5% WATER 100 ML IV SCH (18:30)
[2023-03-18] MEDS: DEXT 5%/0.45% NACL 1000ML 1,000 ML IV SCH (20:31)
[2023-03-18] MEDS ORDERED: CETIRIZINE 10MG TABLET PO PRN (21:00)
[2023-03-19] VITALS (117 sets, daily range): BP systolic 13–195; BP diastolic 13–126; PULSE 75–158; RESP 13–109; TEMP 99.5–100.4; O2SAT 94–100
[2023-03-19] MEDS: IPRATROPIUM/ALBUTEROL 0.5-3(2.5)MG/3ML NEB HHN SCH ×6 (00:07→19:57)
[2023-03-19] MEDS: DEXT 5%/0.45% NACL 1000ML 1,000 ML IV SCH ×3 (02:00→23:19)
[2023-03-19] MEDS: BLOOD SUGAR DIAGNOSTIC STRIP TEST SCH ×15 (02:00→23:16)
[2023-03-19] MEDS: LORAZEPAM 2MG/ML CPJ IM PRN (02:32)
[2023-03-19] MEDS: NOREPINEPHRINE 8 MG in DEXT 5% WATER 242 ML IV PRN ×3 (04:09→12:29)
[2023-03-19] MEDS: SODIUM CHLORIDE 0.9% INJ 3ML FLUSH IVF SCH ×3 (06:03→22:40)
[2023-03-19] MEDS: BACITRACIN 15GM TUBE TOP SCH ×3 (06:04→22:43)
[2023-03-19] MEDS: LACTULOSE 20G/30ML UDC PO SCH ×3 (06:09→22:40)
[2023-03-19] MEDS: CEFEPIME 2,000 MG in DEXT 5% WATER 100 ML IV SCH ×2 (06:09→17:30)
[2023-03-19] MEDS: VANCOMYCIN 750MG PREMIX 150 ML IV SCH ×2 (06:09→17:30)
[2023-03-19 06:25] LABS: BG BASE EXCESS 2.4 mmol/L (-2.0-2.0); BG CARBOXYHEMOGLOBIN 0.3 % (0.5-1.5); BG DEOXYHEMOGLOBIN 7.5 % (0.0-5.0); BG FRACTION INSPIRED OXYGEN 100; BG METHEMOGLOBIN 0.2 % (0.0-1.5); BG OXYGEN SATURATION 92.5 % (92.0-98.5); BG PCO2 48.3 mmHg (35.0-45.0); BG PH 7.381 (7.350-7.450); BG SAMPLE SITE ALINE; BG TOTAL HEMOGLOBIN 9.3 g/dL (12.0-18.0); BG VENT MODE HIGH FLOW
[2023-03-19 06:58] LABS: BASOPHILS % 0.1 % (0.0-2.0); HEMATOCRIT. 22.5 % (42.0-52.0); HEMOGLOBIN. 7.7 g/dL (14.0-18.0); LYMPHOCYTES % 10.6 % (20.0-50.0); MEAN CORPUSCULAR HEMOGLOBIN 30.6 pg (28.0-32.0); MEAN CORPUSCULAR HGB CONC 34.2 g/dL (31.0-37.0); MEAN CORPUSCULAR VOLUME 89.5 fL (80.0-94.0); MEAN PLATELET VOLUME 9.3 fl (7.4-10.4); MONOCYTES % 9.8 % (2.0-8.0); NEUTROPHILS % 79.5 % (40.0-76.0); PLATELET 91 x1000/uL (130-400); RED BLOOD CELL COUNT 2.51 mill/uL (4.7-6.1); RED CELL DISTRIBUTION WIDTH 16.1 % (11.6-14.6); WHITE BLOOD COUNT 11.6 x1000/uL (4.5-11.0)
[2023-03-19 07:04] LABS: CHLORIDE 112 mEq/L (98-107); INDEX HEMOLYSI 1 (1-3); INDEX ICTERIC 1 (1-4); INDEX LIPEMIC 1 (1-3); POTASSIUM 3.5 mEq/L (3.5-5.1); SODIUM 140 mEq/L (136-145)
[2023-03-19 07:06] LABS: INR 1.3; PROTHROMBIN TIME 14.1 sec (9.6-11.0)
[2023-03-19] MEDS ORDERED: EPINEPHRINE 10 MG in SODIUM CHLORIDE 0.9% 240 ML IV PRN (07:15)
[2023-03-19 07:17] LABS: ALANINE AMINOTRANSFERASE 1263 IU/L (13-61); ASPARTATE AMINOTRANSFERASE 869 IU/L (15-37); BILIRUBIN DIRECT 0.4 mg/dL (0.0-0.2); CALCIUM 7.2 mg/dL (8.5-10.1); CARBON DIOXIDE 26 mEq/L (21-32); CREATININE 0.7 mg/dL (0.6-1.3); GLUCOSE 123 mg/dL (70-105); PHOSPHORUS 2.2 mg/dL (2.5-4.9); PROTEIN TOTAL 5.2 g/dL (6.0-8.3); UREA NITROGEN BLOOD 24 mg/dL (7-21)
[2023-03-19 08:37] LABS: BG BASE EXCESS 0.2 mmol/L (-2.0-2.0); BG CARBOXYHEMOGLOBIN 0.3 % (0.5-1.5); BG FRACTION INSPIRED OXYGEN 100; BG HCO3 ACT 24.1 mmol/L (22.0-26.0); BG METHEMOGLOBIN 0.3 % (0.0-1.5); BG OXYHEMOGLOBIN 93.4 % (94.0-97.0); BG PH 7.444 (7.350-7.450); BG SAMPLE SITE ALINE; BG TOTAL HEMOGLOBIN 8.9 g/dL (12.0-18.0); BG VENT MODE VENT - AC
[2023-03-19] MEDS: LOSARTAN POTASSIUM 25 MG TABLET PO SCH (09:00)
[2023-03-19] MEDS: ASPIRIN 81MG TABLET PO SCH (09:41)
[2023-03-19] MEDS: FAMOTIDINE 20MG/2ML VIAL IV SCH (09:42)
[2023-03-19] MEDS: CARVEDILOL 3.125 MG TABLET PO SCH (09:43)
[2023-03-19] MEDS: DOCUSATE SODIUM 100MG CAPSULE PO SCH ×2 (09:44→17:43)
[2023-03-19] MEDS ORDERED: FUROSEMIDE 40MG/4ML VIAL IVP NR (09:45)
[2023-03-19 10:12] LABS: BG BASE EXCESS 3.4 mmol/L (-2.0-2.0); BG CARBOXYHEMOGLOBIN 0.3 % (0.5-1.5); BG DEOXYHEMOGLOBIN 1.4 % (0.0-5.0); BG FRACTION INSPIRED OXYGEN 100; BG HCO3 ACT 25.4 mmol/L (22.0-26.0); BG METHEMOGLOBIN 0.7 % (0.0-1.5); BG OXYGEN SATURATION 98.6 % (92.0-98.5); BG OXYHEMOGLOBIN 97.6 % (94.0-97.0); BG PCO2 29.1 mmHg (35.0-45.0); BG PH 7.558 (7.350-7.450); BG PO2 182.1 mmHg (75.0-100.0); BG SAMPLE SITE ALINE; BG TOTAL HEMOGLOBIN 9.2 g/dL (12.0-18.0); BG VENT MODE VENT - AC
[2023-03-19] MEDS: KCL 10MEQ/50ML PREMIX 100 ML IV PRN ×3 (10:47→13:14)
[2023-03-19] MEDS: INSULIN REGULAR 100U/100ML PMX 100 ML IV SCH ×2 (11:49→21:44)
[2023-03-19] MEDS: AZITHROMYCIN 500 MG TABLET GT SCH (12:33)
[2023-03-19 14:15] LABS: BG BASE EXCESS 3.1 mmol/L (-2.0-2.0); BG CARBOXYHEMOGLOBIN 0.3 % (0.5-1.5); BG FRACTION INSPIRED OXYGEN 75; BG HCO3 ACT 25.6 mmol/L (22.0-26.0); BG METHEMOGLOBIN 0.3 % (0.0-1.5); BG OXYHEMOGLOBIN 97.4 % (94.0-97.0); BG PCO2 31.3 mmHg (35.0-45.0); BG PH 7.531 (7.350-7.450); BG SAMPLE SITE ALINE; BG TOTAL HEMOGLOBIN 9.3 g/dL (12.0-18.0); BG VENT MODE VENT - AC
[2023-03-19] MEDS ORDERED: ACETAMINOPHEN 650MG/20.3ML UDC PO PRN (15:15)
[2023-03-19] MEDS: NOREPINEPHRINE 32 MG in DEXT 5% WATER 218 ML IV PRN (15:18)
[2023-03-19 21:31] LABS: BASOPHILS % 0.1 % (0.0-2.0); HEMATOCRIT. 28.9 % (42.0-52.0); HEMOGLOBIN. 9.8 g/dL (14.0-18.0); LYMPHOCYTES % 8.4 % (20.0-50.0); MEAN CORPUSCULAR HEMOGLOBIN 30.4 pg (28.0-32.0); MEAN CORPUSCULAR HGB CONC 33.9 g/dL (31.0-37.0); MEAN CORPUSCULAR VOLUME 89.5 fL (80.0-94.0); MEAN PLATELET VOLUME 9.6 fl (7.4-10.4); MONOCYTES % 5.7 % (2.0-8.0); NEUTROPHILS % 85.8 % (40.0-76.0); PLATELET 112 x1000/uL (130-400); RED BLOOD CELL COUNT 3.23 mill/uL (4.7-6.1); RED CELL DISTRIBUTION WIDTH 15.4 % (11.6-14.6); WHITE BLOOD COUNT 12.3 x1000/uL (4.5-11.0)
[2023-03-19 21:39] LABS: CALCIUM 7.4 mg/dL (8.5-10.1); CHLORIDE 105 mEq/L (98-107); INDEX HEMOLYSI 1 (1-3); INDEX ICTERIC 1 (1-4); INDEX LIPEMIC 1 (1-3); POTASSIUM 3.1 mEq/L (3.5-5.1); SODIUM 138 mEq/L (136-145)
[2023-03-19 21:43] LABS: CARBON DIOXIDE 23 mEq/L (21-32); CREATININE 0.9 mg/dL (0.6-1.3); GLUCOSE 278 mg/dL (70-105); UREA NITROGEN BLOOD 28 mg/dL (7-21)
[2023-03-19] MEDS: MAGNESIUM 2 G PREMIX 50 ML IV PRN (21:57)
[2023-03-19] MEDS: EPINEPHRINE 10 MG in SODIUM CHLORIDE 0.9% 240 ML IV PRN (22:55)
[2023-03-20] VITALS (115 sets, daily range): BP systolic 18–155; BP diastolic 12–94; PULSE 98–134; RESP 18–75; TEMP 98–100.2
[2023-03-20] MEDS: IPRATROPIUM/ALBUTEROL 0.5-3(2.5)MG/3ML NEB HHN SCH ×6 (00:08→21:14)
[2023-03-20] MEDS: BLOOD SUGAR DIAGNOSTIC STRIP TEST SCH ×15 (00:31→23:07)
[2023-03-20 05:26] LABS: BASOPHILS % 0.2 % (0.0-2.0); EOSINOPHILS % 0.1 % (0.0-5.0); HEMATOCRIT. 28.1 % (42.0-52.0); HEMOGLOBIN. 9.6 g/dL (14.0-18.0); LYMPHOCYTES % 10.6 % (20.0-50.0); MEAN CORPUSCULAR HEMOGLOBIN 30.5 pg (28.0-32.0); MEAN CORPUSCULAR HGB CONC 34.3 g/dL (31.0-37.0); MEAN PLATELET VOLUME 8.8 fl (7.4-10.4); MONOCYTES % 14.7 % (2.0-8.0); NEUTROPHILS % 74.4 % (40.0-76.0); PLATELET 124 x1000/uL (130-400); RED BLOOD CELL COUNT 3.16 mill/uL (4.7-6.1); RED CELL DISTRIBUTION WIDTH 15.7 % (11.6-14.6); WHITE BLOOD COUNT 14.9 x1000/uL (4.5-11.0)
[2023-03-20 05:35] LABS: CHLORIDE 109 mEq/L (98-107); INDEX HEMOLYSI 1 (1-3); INDEX ICTERIC 1 (1-4); INDEX LIPEMIC 1 (1-3); POTASSIUM 3.3 mEq/L (3.5-5.1); SODIUM 140 mEq/L (136-145)
[2023-03-20 05:36] LABS: INDEX HEMOLYSI 1 (1-3)
[2023-03-20 05:44] LABS: AMMONIA 26 uMol/L (<32)
[2023-03-20 05:51] LABS: ALANINE AMINOTRANSFERASE 1210 IU/L (13-61); ALBUMIN 2.9 g/dL (3.4-5.0); ASPARTATE AMINOTRANSFERASE 426 IU/L (15-37); BILIRUBIN DIRECT 0.4 mg/dL (0.0-0.2); BILIRUBIN TOTAL 1.3 mg/dL (0.1-1.0); CALCIUM 7.8 mg/dL (8.5-10.1); CARBON DIOXIDE 26 mEq/L (21-32); CREATININE 0.7 mg/dL (0.6-1.3); GLUCOSE 93 mg/dL (70-105); PHOSPHORUS 1.3 mg/dL (2.5-4.9); PROTEIN TOTAL 5.7 g/dL (6.0-8.3); UREA NITROGEN BLOOD 25 mg/dL (7-21)
[2023-03-20] MEDS ORDERED: FUROSEMIDE 40MG/4ML VIAL IVP NR (06:30)
[2023-03-20] MEDS: LACTULOSE 20G/30ML UDC PO SCH ×3 (06:37→23:00)
[2023-03-20] MEDS: MAGNESIUM 2 G PREMIX 50 ML IV PRN (06:38)
[2023-03-20] MEDS: SODIUM CHLORIDE 0.9% INJ 3ML FLUSH IVF SCH ×3 (06:38→23:00)
[2023-03-20] MEDS: VANCOMYCIN 750MG PREMIX 150 ML IV SCH ×3 (06:38→23:00)
[2023-03-20] MEDS: CEFEPIME 2,000 MG in DEXT 5% WATER 100 ML IV SCH ×2 (06:38→18:00)
[2023-03-20] MEDS: BACITRACIN 15GM TUBE TOP SCH ×3 (06:39→23:01)
[2023-03-20] MEDS: INSULIN REGULAR 100U/100ML PMX 100 ML IV SCH (06:40)
[2023-03-20] MEDS ORDERED: LIDOCAINE HCL 1% 10 MG/ML 10ML VIAL ONE (08:27)
[2023-03-20] MEDS: DOCUSATE SODIUM 100MG CAPSULE PO SCH ×2 (09:00→16:51)
[2023-03-20] MEDS ORDERED: POTASSIUM PHOS,M-BASIC-D-BASIC 15 MMOL in DEXT 5% WATER 245 ML IV SCH (09:00)
[2023-03-20] MEDS: CARVEDILOL 3.125 MG TABLET PO SCH (09:00)
[2023-03-20] MEDS: FAMOTIDINE 20MG/2ML VIAL IV SCH (09:00)
[2023-03-20] MEDS: LOSARTAN POTASSIUM 25 MG TABLET PO SCH (09:00)
[2023-03-20] MEDS: ASPIRIN 81MG TABLET PO SCH (09:00)
[2023-03-20 09:25] LABS: BG BASE EXCESS 1.5 mmol/L (-2.0-2.0); BG CARBOXYHEMOGLOBIN 0.2 % (0.5-1.5); BG FRACTION INSPIRED OXYGEN 45; BG HCO3 ACT 23.4 mmol/L (22.0-26.0); BG METHEMOGLOBIN 0.3 % (0.0-1.5); BG OXYHEMOGLOBIN 96.5 % (94.0-97.0); BG PCO2 28.9 mmHg (35.0-45.0); BG PH 7.527 (7.350-7.450); BG PO2 88.4 mmHg (75.0-100.0); BG SAMPLE SITE ALINE; BG TOTAL HEMOGLOBIN 12.3 g/dL (12.0-18.0); BG VENT MODE VENT - AC
[2023-03-20] MEDS: AZITHROMYCIN 500 MG TABLET GT SCH (11:04)
[2023-03-20] MEDS: EPINEPHRINE 10 MG in SODIUM CHLORIDE 0.9% 240 ML IV PRN (12:00)
[2023-03-20] MEDS ORDERED: FENTANYL 2500MCG/250ML PMX 250 ML IV PRN (13:15)
[2023-03-20] MEDS: FENTANYL CITRATE 2,500 MCG in SODIUM CHLORIDE 0.9% 200 ML IV PRN (13:30)
[2023-03-20] MEDS: DEXT 5%/0.45% NACL 1000ML 1,000 ML IV SCH (16:56)
[2023-03-20] MEDS: ACETAMINOPHEN 325MG TABLET PO PRN (16:56)
[2023-03-20] MEDS ORDERED: LACTULOSE 20G/30ML UDC PO NR (19:30)
[2023-03-20 20:11] LABS: BG BASE EXCESS -3.1 mmol/L (-2.0-2.0); BG CARBOXYHEMOGLOBIN 0.2 % (0.5-1.5); BG DEOXYHEMOGLOBIN 2.5 % (0.0-5.0); BG FRACTION INSPIRED OXYGEN 40; BG HCO3 ACT 20.6 mmol/L (22.0-26.0); BG METHEMOGLOBIN 0.4 % (0.0-1.5); BG OXYGEN SATURATION 97.5 % (92.0-98.5); BG OXYHEMOGLOBIN 96.9 % (94.0-97.0); BG PCO2 32.4 mmHg (35.0-45.0); BG PH 7.421 (7.350-7.450); BG PO2 103.2 mmHg (75.0-100.0); BG SAMPLE SITE LEFT RADIAL; BG TOTAL HEMOGLOBIN 11.8 g/dL (12.0-18.0); BG VENT MODE VENT - AC
[2023-03-20] MEDS: NOREPINEPHRINE 32 MG in DEXT 5% WATER 218 ML IV PRN (20:46)
[2023-03-20 21:19] LABS: CALCIUM 7.6 mg/dL (8.5-10.1); CARBON DIOXIDE 20 mEq/L (21-32); CHLORIDE 103 mEq/L (98-107); INDEX HEMOLYSI 1 (1-3); INDEX ICTERIC 1 (1-4); INDEX LIPEMIC 1 (1-3); POTASSIUM 4.4 mEq/L (3.5-5.1); SODIUM 132 mEq/L (136-145); UREA NITROGEN BLOOD 32 mg/dL (7-21)
[2023-03-20 21:24] LABS: GLUCOSE 451 mg/dL (70-105)
[2023-03-20 21:25] LABS: CREATININE 1.1 mg/dL (0.6-1.3); PHOSPHORUS 3.5 mg/dL (2.5-4.9)
[2023-03-20] MEDS ORDERED: ALBUMIN HUMAN 12.5G/250ML (5%) IV NR (22:48)
[2023-03-20] MEDS ORDERED: FUROSEMIDE 20MG/2ML VIAL IVP NR (22:48)
[2023-03-21] VITALS (109 sets, daily range): BP systolic 86–146; BP diastolic 43–87; PULSE 102–127; RESP 20–40; TEMP 98.7–102.6
[2023-03-21] MEDS: BLOOD SUGAR DIAGNOSTIC STRIP TEST SCH ×22 (00:19→21:13)
[2023-03-21] MEDS: IPRATROPIUM/ALBUTEROL 0.5-3(2.5)MG/3ML NEB HHN SCH ×7 (00:51→21:19)
[2023-03-21] MEDS: DEXT 5%/0.45% NACL 1000ML 1,000 ML IV SCH (02:23)
[2023-03-21] MEDS ORDERED: INSULIN REGULAR (DRIP) 100 UNITS in SODIUM CHLORIDE 0.9% 99 ML IV SCH (02:30)
[2023-03-21] MEDS: INSULIN REGULAR 100U/100ML PMX 100 ML IV SCH (03:47)
[2023-03-21 06:16] LABS: HEMATOCRIT. 29.1 % (42.0-52.0); MEAN CORPUSCULAR HEMOGLOBIN 30.9 pg (28.0-32.0); MEAN CORPUSCULAR HGB CONC 34.4 g/dL (31.0-37.0); MEAN CORPUSCULAR VOLUME 89.8 fL (80.0-94.0); MEAN PLATELET VOLUME 8.8 fl (7.4-10.4); PLATELET 128 x1000/uL (130-400); RED BLOOD CELL COUNT 3.24 mill/uL (4.7-6.1); RED CELL DISTRIBUTION WIDTH 15.5 % (11.6-14.6); WHITE BLOOD COUNT 17.5 x1000/uL (4.5-11.0)
[2023-03-21 06:20] LABS: DIFFERENTIAL COMMENT 1
[2023-03-21] MEDS: SODIUM CHLORIDE 0.9% INJ 3ML FLUSH IVF SCH ×3 (06:47→22:20)
[2023-03-21] MEDS: CEFEPIME 2,000 MG in DEXT 5% WATER 100 ML IV SCH ×2 (06:47→17:41)
[2023-03-21] MEDS: BACITRACIN 15GM TUBE TOP SCH ×3 (06:48→22:19)
[2023-03-21 06:50] LABS: CHLORIDE 106 mEq/L (98-107); INDEX HEMOLYSI 1 (1-3); INDEX ICTERIC 1 (1-4); INDEX LIPEMIC 1 (1-3); POTASSIUM 3.7 mEq/L (3.5-5.1); SODIUM 136 mEq/L (136-145)
[2023-03-21] MEDS: LACTULOSE 20G/30ML UDC PO SCH ×3 (06:50→22:24)
[2023-03-21] MEDS: VANCOMYCIN 750MG PREMIX 150 ML IV SCH (06:51)
[2023-03-21 07:02] LABS: ALANINE AMINOTRANSFERASE 828 IU/L (13-61); ASPARTATE AMINOTRANSFERASE 153 IU/L (15-37); BILIRUBIN DIRECT 0.4 mg/dL (0.0-0.2); BILIRUBIN TOTAL 1.6 mg/dL (0.1-1.0); CALCIUM 8.1 mg/dL (8.5-10.1); CARBON DIOXIDE 24 mEq/L (21-32); CREATININE 0.9 mg/dL (0.6-1.3); GLUCOSE 72 mg/dL (70-105); PROTEIN TOTAL 5.9 g/dL (6.0-8.3); UREA NITROGEN BLOOD 33 mg/dL (7-21)
[2023-03-21 07:46] LABS: BG BASE EXCESS 0.5 mmol/L (-2.0-2.0); BG CARBOXYHEMOGLOBIN 0.3 % (0.5-1.5); BG DEOXYHEMOGLOBIN 4.9 % (0.0-5.0); BG FRACTION INSPIRED OXYGEN 40; BG HCO3 ACT 23.1 mmol/L (22.0-26.0); BG OXYGEN SATURATION 95.1 % (92.0-98.5); BG OXYHEMOGLOBIN 94.8 % (94.0-97.0); BG PCO2 30.4 mmHg (35.0-45.0); BG PH 7.498 (7.350-7.450); BG PO2 74.8 mmHg (75.0-100.0); BG SAMPLE SITE ALINE; BG TOTAL HEMOGLOBIN 11.1 g/dL (12.0-18.0); BG VENT MODE VENT - AC
[2023-03-21] MEDS: CARVEDILOL 3.125 MG TABLET PO SCH (08:44)
[2023-03-21] MEDS: LOSARTAN POTASSIUM 25 MG TABLET PO SCH (08:45)
[2023-03-21] MEDS: ACETAMINOPHEN 325MG TABLET PO PRN (08:45)
[2023-03-21] MEDS: FAMOTIDINE 20MG/2ML VIAL IV SCH (08:45)
[2023-03-21] MEDS: DOCUSATE SODIUM 100MG CAPSULE PO SCH ×2 (08:45→17:00)
[2023-03-21] MEDS: ASPIRIN 81MG TABLET PO SCH (08:45)
[2023-03-21 11:25] LABS: NUCLEATED RED BLOOD CELLS 1 /100 WBC
[2023-03-21 11:27] LABS: ANISOCYTOSIS 1+; PLATELET ESTIMATE SLIGHTLY DECREASED
[2023-03-21] MEDS: AZITHROMYCIN 500 MG TABLET GT SCH (13:20)
[2023-03-21] MEDS: VANCOMYCIN 500MG PREMIX 100 ML IV SCH (17:41)
[2023-03-21] MEDS: FENTANYL CITRATE 2,500 MCG in SODIUM CHLORIDE 0.9% 200 ML IV PRN (18:46)
[2023-03-22] VITALS (105 sets, daily range): BP systolic 19–151; BP diastolic 49–92; PULSE 95–112; RESP 24–52; TEMP 97.4–99.6
[2023-03-22] MEDS: IPRATROPIUM/ALBUTEROL 0.5-3(2.5)MG/3ML NEB HHN SCH ×6 (01:09→20:14)
[2023-03-22] MEDS: BLOOD SUGAR DIAGNOSTIC STRIP TEST SCH ×12 (02:00→22:05)
[2023-03-22] MEDS: MEROPENEM 1,000 MG in SODIUM CHLORIDE 0.9% 100 ML IV SCH ×4 (03:20→22:05)
[2023-03-22] MEDS: DEXT 5%/0.45% NACL 1000ML 1,000 ML IV SCH (03:22)
[2023-03-22] MEDS: INSULIN REGULAR 100U/100ML PMX 100 ML IV SCH (06:15)
[2023-03-22] MEDS: BACITRACIN 15GM TUBE TOP SCH ×3 (06:17→22:05)
[2023-03-22] MEDS: VANCOMYCIN 500MG PREMIX 100 ML IV SCH ×2 (06:18→18:10)
[2023-03-22] MEDS: SODIUM CHLORIDE 0.9% INJ 3ML FLUSH IVF SCH ×3 (06:18→22:05)
[2023-03-22] MEDS: LACTULOSE 20G/30ML UDC PO SCH ×3 (06:20→22:30)
[2023-03-22 06:33] LABS: HEMATOCRIT 28.7 % (42.0-52.0); HEMOGLOBIN 9.5 g/dL (14.0-18.0); MEAN CORPUSCULAR HEMOGLOBIN 30.7 pg (28.0-32.0); MEAN CORPUSCULAR HGB CONC 33.3 g/dL (31.0-37.0); MEAN CORPUSCULAR VOLUME 92.2 fL (80.0-94.0); PLATELET 124 x1000/uL (130-400); RED BLOOD CELL COUNT 3.11 mill/uL (4.7-6.1); RED CELL DISTRIBUTION WIDTH 15.4 % (11.6-14.6); WHITE BLOOD COUNT 13.5 x1000/uL (4.5-11.0)
[2023-03-22 06:40] LABS: CHLORIDE 108 mEq/L (98-107); INDEX HEMOLYSI 1 (1-3); INDEX ICTERIC 1 (1-4); INDEX LIPEMIC 1 (1-3); SODIUM 137 mEq/L (136-145)
[2023-03-22 06:50] LABS: ALANINE AMINOTRANSFERASE 454 IU/L (13-61); ALBUMIN 2.5 g/dL (3.4-5.0); ASPARTATE AMINOTRANSFERASE 97 IU/L (15-37); BILIRUBIN DIRECT 0.3 mg/dL (0.0-0.2); CALCIUM 8.4 mg/dL (8.5-10.1); CARBON DIOXIDE 23 mEq/L (21-32); CREATININE 0.8 mg/dL (0.6-1.3); GLUCOSE 123 mg/dL (70-105); PROTEIN TOTAL 5.5 g/dL (6.0-8.3); UREA NITROGEN BLOOD 36 mg/dL (7-21)
[2023-03-22] MEDS: LOSARTAN POTASSIUM 25 MG TABLET PO SCH (08:43)
[2023-03-22] MEDS: CARVEDILOL 3.125 MG TABLET PO SCH (08:43)
[2023-03-22] MEDS: DOCUSATE SODIUM SUGAR FREE 100MG/10ML UDC PO SCH ×2 (08:50→16:57)
[2023-03-22] MEDS: ASPIRIN 81MG TABLET PO SCH (08:50)
[2023-03-22] MEDS: FAMOTIDINE 20MG/2ML VIAL IV SCH (08:51)
[2023-03-22 09:04] LABS: BG BASE EXCESS 0.7 mmol/L (-2.0-2.0); BG FRACTION INSPIRED OXYGEN 40; BG HCO3 ACT 24.1 mmol/L (22.0-26.0); BG METHEMOGLOBIN 0.2 % (0.0-1.5); BG OXYHEMOGLOBIN 96.8 % (94.0-97.0); BG PCO2 33.5 mmHg (35.0-45.0); BG PH 7.474 (7.350-7.450); BG PO2 87.1 mmHg (75.0-100.0); BG SAMPLE SITE ALINE; BG TOTAL HEMOGLOBIN 9.7 g/dL (12.0-18.0); BG VENT MODE VENT - AC
[2023-03-22] MEDS ORDERED: FENTANYL CITRATE/PF 50MCG/ML 2ML VIAL IV PRN (10:15)
[2023-03-22] MEDS: AZITHROMYCIN 500 MG TABLET GT SCH (11:51)
[2023-03-22] MEDS: POLYVINYL ALCOHOL OPHTH DROPS 15ML BOTHEYE SCH ×2 (16:58→21:04)
[2023-03-22] MEDS: NOREPINEPHRINE 32 MG in DEXT 5% WATER 218 ML IV PRN (19:32)
[2023-03-23] VITALS (103 sets, daily range): BP systolic 88–152; BP diastolic 50–87; PULSE 105–124; RESP 21–46; TEMP 98.8–99.9
[2023-03-23] MEDS: BLOOD SUGAR DIAGNOSTIC STRIP TEST SCH ×12 (00:05→21:59)
[2023-03-23] MEDS: POLYVINYL ALCOHOL OPHTH DROPS 15ML BOTHEYE SCH ×6 (00:06→19:35)
[2023-03-23] MEDS: IPRATROPIUM/ALBUTEROL 0.5-3(2.5)MG/3ML NEB HHN SCH ×6 (00:26→21:10)
[2023-03-23] MEDS: DEXT 5%/0.45% NACL 1000ML 1,000 ML IV SCH (01:08)
[2023-03-23] MEDS: INSULIN REGULAR 100U/100ML PMX 100 ML IV SCH ×2 (02:09→23:29)
[2023-03-23 06:44] LABS: HEMATOCRIT 26.8 % (42.0-52.0); HEMOGLOBIN 9.1 g/dL (14.0-18.0); MEAN CORPUSCULAR HEMOGLOBIN 30.5 pg (28.0-32.0); MEAN CORPUSCULAR HGB CONC 33.8 g/dL (31.0-37.0); PLATELET 157 x1000/uL (130-400); RED BLOOD CELL COUNT 2.98 mill/uL (4.7-6.1); RED CELL DISTRIBUTION WIDTH 15.8 % (11.6-14.6); WHITE BLOOD COUNT 16.3 x1000/uL (4.5-11.0)
[2023-03-23] MEDS: SODIUM CHLORIDE 0.9% INJ 3ML FLUSH IVF SCH ×3 (06:59→21:59)
[2023-03-23] MEDS: VANCOMYCIN 500MG PREMIX 100 ML IV SCH (06:59)
[2023-03-23] MEDS: MEROPENEM 1,000 MG in SODIUM CHLORIDE 0.9% 100 ML IV SCH ×3 (07:00→22:08)
[2023-03-23] MEDS: BACITRACIN 15GM TUBE TOP SCH ×3 (07:00→22:07)
[2023-03-23] MEDS: LACTULOSE 20G/30ML UDC PO SCH ×3 (07:01→21:58)
[2023-03-23 07:08] LABS: CHLORIDE 106 mEq/L (98-107); INDEX HEMOLYSI 1 (1-3); INDEX ICTERIC 1 (1-4); INDEX LIPEMIC 1 (1-3); POTASSIUM 4.6 mEq/L (3.5-5.1); SODIUM 134 mEq/L (136-145)
[2023-03-23 07:18] LABS: ALANINE AMINOTRANSFERASE 377 IU/L (13-61); ASPARTATE AMINOTRANSFERASE 208 IU/L (15-37); BILIRUBIN DIRECT 0.4 mg/dL (0.0-0.2); BILIRUBIN TOTAL 0.9 mg/dL (0.1-1.0); CALCIUM 7.6 mg/dL (8.5-10.1); CARBON DIOXIDE 24 mEq/L (21-32); CREATININE 0.7 mg/dL (0.6-1.3); GLUCOSE 212 mg/dL (70-105); PHOSPHORUS 2.5 mg/dL (2.5-4.9); PROTEIN TOTAL 5.3 g/dL (6.0-8.3); UREA NITROGEN BLOOD 33 mg/dL (7-21)
[2023-03-23] MEDS: CARVEDILOL 3.125 MG TABLET PO SCH (08:54)
[2023-03-23] MEDS: LOSARTAN POTASSIUM 25 MG TABLET PO SCH (08:54)
[2023-03-23 09:02] LABS: BG BASE EXCESS 0.6 mmol/L (-2.0-2.0); BG CARBOXYHEMOGLOBIN 0.3 % (0.5-1.5); BG DEOXYHEMOGLOBIN 2.4 % (0.0-5.0); BG FRACTION INSPIRED OXYGEN 40; BG HCO3 ACT 23.2 mmol/L (22.0-26.0); BG METHEMOGLOBIN 0.3 % (0.0-1.5); BG OXYGEN SATURATION 97.6 % (92.0-98.5); BG PCO2 30.3 mmHg (35.0-45.0); BG PH 7.502 (7.350-7.450); BG PO2 99.6 mmHg (75.0-100.0); BG SAMPLE SITE ALINE; BG TOTAL HEMOGLOBIN 10.2 g/dL (12.0-18.0); BG VENT MODE VENT - AC
[2023-03-23] MEDS: ASPIRIN 81MG TABLET PO SCH (09:19)
[2023-03-23] MEDS: DOCUSATE SODIUM SUGAR FREE 100MG/10ML UDC PO SCH ×2 (09:19→17:23)
[2023-03-23] MEDS: FAMOTIDINE 20MG/2ML VIAL IV SCH (09:19)
[2023-03-23] MEDS: FENTANYL CITRATE 2,500 MCG in SODIUM CHLORIDE 0.9% 200 ML IV PRN (10:34)
[2023-03-23] MEDS: AZITHROMYCIN 500 MG TABLET GT SCH (12:10)
[2023-03-23] MEDS ORDERED: PHENYLEPHRINE 50 MG in DEXT 5% WATER 245 ML IV PRN (15:30)
[2023-03-23] MEDS ORDERED: PHENYLEPHRINE 100 MG in DEXT 5% WATER 240 ML IV PRN (20:00)
[2023-03-24] VITALS (104 sets, daily range): BP systolic 79–128; BP diastolic 51–75; PULSE 99–125; RESP 20–33; TEMP 98.8–100
[2023-03-24] MEDS: BLOOD SUGAR DIAGNOSTIC STRIP TEST SCH ×8 (00:04→23:59)
[2023-03-24] MEDS: POLYVINYL ALCOHOL OPHTH DROPS 15ML BOTHEYE SCH ×6 (00:04→20:04)
[2023-03-24] MEDS: IPRATROPIUM/ALBUTEROL 0.5-3(2.5)MG/3ML NEB HHN SCH ×6 (00:40→19:57)
[2023-03-24] MEDS: DEXT 5%/0.45% NACL 1000ML 1,000 ML IV SCH (00:50)
[2023-03-24] MEDS: LACTULOSE 20G/30ML UDC PO SCH ×3 (06:17→22:55)
[2023-03-24] MEDS: BACITRACIN 15GM TUBE TOP SCH ×3 (06:17→22:52)
[2023-03-24] MEDS: SODIUM CHLORIDE 0.9% INJ 3ML FLUSH IVF SCH ×3 (06:17→22:50)
[2023-03-24] MEDS: MEROPENEM 1,000 MG in SODIUM CHLORIDE 0.9% 100 ML IV SCH ×3 (06:18→22:52)
[2023-03-24 07:00] LABS: CHLORIDE 108 mEq/L (98-107); INDEX HEMOLYSI 1 (1-3); INDEX ICTERIC 1 (1-4); INDEX LIPEMIC 1 (1-3); SODIUM 137 mEq/L (136-145)
[2023-03-24 07:07] LABS: ALANINE AMINOTRANSFERASE 624 IU/L (13-61); ALBUMIN 2.1 g/dL (3.4-5.0); ASPARTATE AMINOTRANSFERASE 537 IU/L (15-37); BILIRUBIN TOTAL 1.6 mg/dL (0.1-1.0); CALCIUM 8.3 mg/dL (8.5-10.1); CARBON DIOXIDE 22 mEq/L (21-32); CREATININE 0.9 mg/dL (0.6-1.3); GLUCOSE 134 mg/dL (70-105); PROTEIN TOTAL 6.1 g/dL (6.0-8.3); UREA NITROGEN BLOOD 44 mg/dL (7-21)
[2023-03-24 08:41] LABS: HEMOGLOBIN 8.9 g/dL (14.0-18.0); MEAN CORPUSCULAR HEMOGLOBIN 29.9 pg (28.0-32.0); MEAN CORPUSCULAR HGB CONC 32.9 g/dL (31.0-37.0); MEAN CORPUSCULAR VOLUME 91.2 fL (80.0-94.0); PLATELET 223 x1000/uL (130-400); RED BLOOD CELL COUNT 2.96 mill/uL (4.7-6.1); WHITE BLOOD COUNT 21.3 x1000/uL (4.5-11.0)
[2023-03-24 08:51] LABS: BG BASE EXCESS 1.1 mmol/L (-2.0-2.0); BG CARBOXYHEMOGLOBIN 0.1 % (0.5-1.5); BG DEOXYHEMOGLOBIN 6.8 % (0.0-5.0); BG FRACTION INSPIRED OXYGEN 35; BG HCO3 ACT 23.3 mmol/L (22.0-26.0); BG METHEMOGLOBIN 0.2 % (0.0-1.5); BG OXYGEN SATURATION 93.2 % (92.0-98.5); BG OXYHEMOGLOBIN 92.9 % (94.0-97.0); BG PCO2 29.1 mmHg (35.0-45.0); BG PH 7.522 (7.350-7.450); BG PO2 64.7 mmHg (75.0-100.0); BG SAMPLE SITE LEFT BRACHIAL; BG TOTAL HEMOGLOBIN 10.3 g/dL (12.0-18.0); BG TOTAL RESPIRATORY RATE 32 b/min; BG VENT MODE VENT - AC
[2023-03-24] MEDS: CARVEDILOL 3.125 MG TABLET PO SCH (08:57)
[2023-03-24] MEDS: LOSARTAN POTASSIUM 25 MG TABLET PO SCH (08:57)
[2023-03-24] MEDS ORDERED: METHYLPREDNISOLONE SOD SUCC 40MG VIAL IV SCH (10:00)
[2023-03-24] MEDS: FAMOTIDINE 20MG/2ML VIAL IV SCH (11:18)
[2023-03-24] MEDS: ASPIRIN 81MG TABLET PO SCH (11:18)
[2023-03-24] MEDS: DOCUSATE SODIUM SUGAR FREE 100MG/10ML UDC PO SCH ×2 (11:18→17:28)
[2023-03-24] MEDS: VANCOMYCIN 750MG PREMIX 150 ML IV SCH (11:19)
[2023-03-24] MEDS ORDERED: DEXTROSE 50% WATER 50ML SYRINGE IV PRN (13:30)
[2023-03-24] MEDS: PHENYLEPHRINE 100 MG in DEXT 5% WATER 240 ML IV PRN (17:24)
[2023-03-24] MEDS: FENTANYL CITRATE 2,500 MCG in SODIUM CHLORIDE 0.9% 200 ML IV PRN (17:25)
[2023-03-24] MEDS ORDERED: BLOOD SUGAR DIAGNOSTIC STRIP TEST SCH ×2 (17:50→18:00)
[2023-03-24] MEDS ORDERED: INSULIN LISPRO 100 UNITS/ML SUBCUT SCH (18:20)
[2023-03-25] VITALS (111 sets, daily range): BP systolic 90–134; BP diastolic 57–95; PULSE 118–131; RESP 14–46; TEMP 98–100.1
[2023-03-25] MEDS ORDERED: INSULIN LISPRO 100 UNITS/ML SUBCUT SCH
[2023-03-25] MEDS: IPRATROPIUM/ALBUTEROL 0.5-3(2.5)MG/3ML NEB HHN SCH ×6 (00:07→20:00)
[2023-03-25] MEDS ORDERED: DEXTROSE 50% WATER 50ML SYRINGE IV PRN (00:15)
[2023-03-25] MEDS: DEXT 5%/0.45% NACL 1000ML 1,000 ML IV SCH (02:26)
[2023-03-25] MEDS: POLYVINYL ALCOHOL OPHTH DROPS 15ML BOTHEYE SCH ×6 (05:03→20:49)
[2023-03-25 05:35] LABS: HEMATOCRIT 26.7 % (42.0-52.0); HEMOGLOBIN 8.7 g/dL (14.0-18.0); MEAN CORPUSCULAR HEMOGLOBIN 29.8 pg (28.0-32.0); MEAN CORPUSCULAR HGB CONC 32.7 g/dL (31.0-37.0); MEAN CORPUSCULAR VOLUME 91.2 fL (80.0-94.0); PLATELET 312 x1000/uL (130-400); RED BLOOD CELL COUNT 2.93 mill/uL (4.7-6.1); RED CELL DISTRIBUTION WIDTH 16.3 % (11.6-14.6); WHITE BLOOD COUNT 33.7 x1000/uL (4.5-11.0)
[2023-03-25 05:37] LABS: CHLORIDE 108 mEq/L (98-107); INDEX HEMOLYSI 1 (1-3); INDEX ICTERIC 1 (1-4); INDEX LIPEMIC 1 (1-3); POTASSIUM 4.6 mEq/L (3.5-5.1); SODIUM 136 mEq/L (136-145)
[2023-03-25 05:45] LABS: ALANINE AMINOTRANSFERASE 398 IU/L (13-61); ALBUMIN 1.9 g/dL (3.4-5.0); ASPARTATE AMINOTRANSFERASE 155 IU/L (15-37); BILIRUBIN DIRECT 0.5 mg/dL (0.0-0.2); CALCIUM 8.3 mg/dL (8.5-10.1); CARBON DIOXIDE 24 mEq/L (21-32); CREATININE 0.8 mg/dL (0.6-1.3); GLUCOSE 340 mg/dL (70-105); PROTEIN TOTAL 5.8 g/dL (6.0-8.3); UREA NITROGEN BLOOD 52 mg/dL (7-21)
[2023-03-25] MEDS: MEROPENEM 1,000 MG in SODIUM CHLORIDE 0.9% 100 ML IV SCH ×3 (06:46→22:40)
[2023-03-25] MEDS: BACITRACIN 15GM TUBE TOP SCH ×3 (06:46→22:40)
[2023-03-25] MEDS: BLOOD SUGAR DIAGNOSTIC STRIP TEST SCH ×3 (06:46→17:41)
[2023-03-25] MEDS: LACTULOSE 20G/30ML UDC PO SCH ×3 (06:47→23:07)
[2023-03-25] MEDS: SODIUM CHLORIDE 0.9% INJ 3ML FLUSH IVF SCH ×3 (06:47→22:40)
[2023-03-25] MEDS: INSULIN LISPRO 100 UNITS/ML SUBCUT SCH ×3 (07:16→17:41)
[2023-03-25] MEDS: ASPIRIN 81MG TABLET PO SCH (08:37)
[2023-03-25] MEDS: DOCUSATE SODIUM SUGAR FREE 100MG/10ML UDC PO SCH ×2 (08:37→17:24)
[2023-03-25] MEDS: FAMOTIDINE 20MG/2ML VIAL IV SCH (08:37)
[2023-03-25] MEDS: CARVEDILOL 3.125 MG TABLET PO SCH (08:38)
[2023-03-25] MEDS: LOSARTAN POTASSIUM 25 MG TABLET PO SCH (08:39)
[2023-03-25 08:55] LABS: BG BASE EXCESS -0.7 mmol/L (-2.0-2.0); BG CARBOXYHEMOGLOBIN 0.3 % (0.5-1.5); BG DEOXYHEMOGLOBIN 1.5 % (0.0-5.0); BG FRACTION INSPIRED OXYGEN 45; BG HCO3 ACT 22.9 mmol/L (22.0-26.0); BG METHEMOGLOBIN 0.3 % (0.0-1.5); BG OXYGEN SATURATION 98.5 % (92.0-98.5); BG OXYHEMOGLOBIN 97.9 % (94.0-97.0); BG PCO2 33.8 mmHg (35.0-45.0); BG PH 7.449 (7.350-7.450); BG PO2 126.8 mmHg (75.0-100.0); BG SAMPLE SITE LEFT RADIAL; BG TOTAL HEMOGLOBIN 9.9 g/dL (12.0-18.0); BG TOTAL RESPIRATORY RATE 19 b/min; BG VENT MODE VENT - AC
[2023-03-25] MEDS: VANCOMYCIN 750MG PREMIX 150 ML IV SCH (11:07)
[2023-03-25] MEDS: PHENYLEPHRINE 100 MG in DEXT 5% WATER 240 ML IV PRN (11:39)
[2023-03-25] MEDS: METOCLOPRAMIDE HCL 10MG/2ML VIAL IV SCH (17:24)
[2023-03-25] MEDS: DOXYCYCLINE 100 MG in DEXT 5% WATER 100 ML IV SCH (22:40)
[2023-03-26] VITALS (99 sets, daily range): BP systolic 83–122; BP diastolic 52–84; PULSE 97–131; RESP 7–39; TEMP 98.9–100.5
[2023-03-26] MEDS: BLOOD SUGAR DIAGNOSTIC STRIP TEST SCH ×4 (00:27→18:03)
[2023-03-26] MEDS: INSULIN LISPRO 100 UNITS/ML SUBCUT SCH ×4 (00:27→18:57)
[2023-03-26] MEDS: POLYVINYL ALCOHOL OPHTH DROPS 15ML BOTHEYE SCH ×6 (00:28→20:50)
[2023-03-26] MEDS: METOCLOPRAMIDE HCL 10MG/2ML VIAL IV SCH ×4 (00:31→18:03)
[2023-03-26] MEDS: FENTANYL CITRATE/PF 2,500 MCG in SODIUM CHLORIDE 0.9% 200 ML IV PRN ×2 (02:20→18:02)
[2023-03-26] MEDS: IPRATROPIUM/ALBUTEROL 0.5-3(2.5)MG/3ML NEB HHN SCH ×5 (04:23→16:03)
[2023-03-26 05:55] LABS: HEMATOCRIT. 28.2 % (42.0-52.0); HEMOGLOBIN. 9.2 g/dL (14.0-18.0); MEAN CORPUSCULAR HEMOGLOBIN 29.5 pg (28.0-32.0); MEAN CORPUSCULAR HGB CONC 32.5 g/dL (31.0-37.0); MEAN CORPUSCULAR VOLUME 90.7 fL (80.0-94.0); MEAN PLATELET VOLUME 9.3 fl (7.4-10.4); PLATELET 397 x1000/uL (130-400); RED CELL DISTRIBUTION WIDTH 16.1 % (11.6-14.6); WHITE BLOOD COUNT 28.9 x1000/uL (4.5-11.0)
[2023-03-26] MEDS: SODIUM CHLORIDE 0.9% INJ 3ML FLUSH IVF SCH ×3 (06:13→22:30)
[2023-03-26] MEDS: LACTULOSE 20G/30ML UDC PO SCH ×3 (06:13→22:31)
[2023-03-26] MEDS: BACITRACIN 15GM TUBE TOP SCH ×3 (06:17→22:30)
[2023-03-26] MEDS: MEROPENEM 1,000 MG in SODIUM CHLORIDE 0.9% 100 ML IV SCH ×3 (06:27→22:31)
[2023-03-26 06:30] LABS: CALCIUM 8.6 mg/dL (8.5-10.1); CHLORIDE 108 mEq/L (98-107); INDEX HEMOLYSI 1 (1-3); INDEX ICTERIC 1 (1-4); INDEX LIPEMIC 1 (1-3); POTASSIUM 5.1 mEq/L (3.5-5.1); SODIUM 137 mEq/L (136-145)
[2023-03-26] MEDS: PHENYLEPHRINE 100 MG in DEXT 5% WATER 240 ML IV PRN ×2 (06:31→18:01)
[2023-03-26 06:34] LABS: CARBON DIOXIDE 27 mEq/L (21-32); CREATININE 0.9 mg/dL (0.6-1.3); GLUCOSE 276 mg/dL (70-105); UREA NITROGEN BLOOD 56 mg/dL (7-21)
[2023-03-26 07:07] LABS: DIFFERENTIAL COMMENT 1
[2023-03-26 08:51] LABS: BG CARBOXYHEMOGLOBIN 0.2 % (0.5-1.5); BG DEOXYHEMOGLOBIN 1.1 % (0.0-5.0); BG FRACTION INSPIRED OXYGEN 45; BG HCO3 ACT 24.9 mmol/L (22.0-26.0); BG METHEMOGLOBIN 0.4 % (0.0-1.5); BG OXYGEN SATURATION 98.9 % (92.0-98.5); BG OXYHEMOGLOBIN 98.3 % (94.0-97.0); BG PCO2 36.6 mmHg (35.0-45.0); BG PO2 141.3 mmHg (75.0-100.0); BG SAMPLE SITE LEFT RADIAL; BG TOTAL HEMOGLOBIN 10.2 g/dL (12.0-18.0); BG TOTAL RESPIRATORY RATE 20 b/min; BG VENT MODE VENT - AC
[2023-03-26] MEDS: LOSARTAN POTASSIUM 25 MG TABLET PO SCH (09:00)
[2023-03-26] MEDS: DOCUSATE SODIUM SUGAR FREE 100MG/10ML UDC PO SCH ×2 (09:40→17:00)
[2023-03-26] MEDS: DOXYCYCLINE 100 MG in DEXT 5% WATER 100 ML IV SCH ×2 (09:40→20:52)
[2023-03-26] MEDS: ASPIRIN 81MG TABLET PO SCH (09:40)
[2023-03-26] MEDS: FAMOTIDINE 20MG/2ML VIAL IV SCH (09:40)
[2023-03-26] MEDS: CARVEDILOL 3.125 MG TABLET PO SCH (09:41)
[2023-03-26] MEDS: VANCOMYCIN 750MG PREMIX 150 ML IV SCH (10:34)
[2023-03-26 13:21] LABS: ANISOCYTOSIS 1+; PLATELET ESTIMATE NORMAL
[2023-03-27] VITALS (58 sets, daily range): BP systolic 52–159; BP diastolic 21–94; PULSE 95–122; RESP 4–36; TEMP 99–99.5
[2023-03-27] MEDS: BLOOD SUGAR DIAGNOSTIC STRIP TEST SCH ×2 (00:25→05:43)
[2023-03-27] MEDS: INSULIN LISPRO 100 UNITS/ML SUBCUT SCH ×2 (00:35→05:43)
[2023-03-27] MEDS: POLYVINYL ALCOHOL OPHTH DROPS 15ML BOTHEYE SCH ×3 (00:35→08:59)
[2023-03-27] MEDS: METOCLOPRAMIDE HCL 10MG/2ML VIAL IV SCH ×2 (00:35→08:57)
[2023-03-27] MEDS: SODIUM CHLORIDE 0.9% INJ 3ML FLUSH IVF SCH (05:34)
[2023-03-27] MEDS: LACTULOSE 20G/30ML UDC PO SCH (05:43)
[2023-03-27] MEDS: MEROPENEM 1,000 MG in SODIUM CHLORIDE 0.9% 100 ML IV SCH (05:44)
[2023-03-27] MEDS: BACITRACIN 15GM TUBE TOP SCH (05:44)
[2023-03-27 05:57] LABS: HEMATOCRIT. 27.7 % (42.0-52.0); HEMOGLOBIN. 9.2 g/dL (14.0-18.0); MEAN CORPUSCULAR HEMOGLOBIN 30.6 pg (28.0-32.0); MEAN CORPUSCULAR HGB CONC 33.1 g/dL (31.0-37.0); MEAN CORPUSCULAR VOLUME 92.4 fL (80.0-94.0); MEAN PLATELET VOLUME 10.3 fl (7.4-10.4); PLATELET 354 x1000/uL (130-400); RED CELL DISTRIBUTION WIDTH 16.8 % (11.6-14.6); WHITE BLOOD COUNT 25.5 x1000/uL (4.5-11.0)
[2023-03-27 05:58] LABS: CHLORIDE 108 mEq/L (98-107); INDEX HEMOLYSI 1 (1-3); INDEX ICTERIC 1 (1-4); INDEX LIPEMIC 1 (1-3); POTASSIUM 5.4 mEq/L (3.5-5.1); SODIUM 137 mEq/L (136-145)
[2023-03-27 06:07] LABS: CARBON DIOXIDE 24 mEq/L (21-32); DIFFERENTIAL COMMENT 1; GLUCOSE 383 mg/dL (70-105); UREA NITROGEN BLOOD 66 mg/dL (7-21)
[2023-03-27] MEDS: CARVEDILOL 3.125 MG TABLET PO SCH (08:57)
[2023-03-27] MEDS: DOXYCYCLINE 100 MG in DEXT 5% WATER 100 ML IV SCH (08:58)
[2023-03-27] MEDS: DOCUSATE SODIUM SUGAR FREE 100MG/10ML UDC PO SCH (08:58)
[2023-03-27] MEDS: LOSARTAN POTASSIUM 25 MG TABLET PO SCH (08:58)
[2023-03-27] MEDS: ASPIRIN 81MG TABLET PO SCH (08:58)
[2023-03-27] MEDS: FAMOTIDINE 20MG/2ML VIAL IV SCH (08:59)
[2023-03-27 09:54] LABS: BG BASE EXCESS -2.5 mmol/L (-2.0-2.0); BG CARBOXYHEMOGLOBIN 0.3 % (0.5-1.5); BG DEOXYHEMOGLOBIN 4.9 % (0.0-5.0); BG FRACTION INSPIRED OXYGEN 35; BG HCO3 ACT 21.5 mmol/L (22.0-26.0); BG METHEMOGLOBIN 0.3 % (0.0-1.5); BG OXYGEN SATURATION 95.1 % (92.0-98.5); BG OXYHEMOGLOBIN 94.5 % (94.0-97.0); BG PCO2 33.6 mmHg (35.0-45.0); BG PH 7.423 (7.350-7.450); BG PO2 81.7 mmHg (75.0-100.0); BG SAMPLE SITE RIGHT RADIAL; BG TOTAL HEMOGLOBIN 9.9 g/dL (12.0-18.0); BG VENT MODE VENT - AC
[2023-03-27] MEDS: PHENYLEPHRINE 100 MG in DEXT 5% WATER 240 ML IV PRN (10:24)
[2023-03-27 10:49] LABS: ANISOCYTOSIS 1+; NUCLEATED RED BLOOD CELLS 1 /100 WBC; PLATELET ESTIMATE NORMAL
[2023-03-27] MEDS ORDERED: MORPHINE SULFATE 250 MG in DEXT 5% WATER 225 ML IV PRN (13:00)
== END 2023-03-27 13:40 | DRG 233 ==
LOC: ER 02:43 → SUPCPDRO 09:59 → EDBEDREQTM 11:15 → 8WST 11:15 → EDBEDREQ 11:15 → 3WST 03-10 15:25 → CVICU 03-16 06:50
PROVIDERS: ADMIT Internal Medicine; ATTEND Internal Medicine
PROC: 5A12012 Performance of Cardiac Output, Single, Manual (ICD-10-PCS; 2023-03-07)
PROC: 0BH17EZ Insertion of Endotracheal Airway into Trachea, Via Natural or Artificial Opening (ICD-10-PCS; 2023-03-16)
PROC: 5A1935Z Respiratory Ventilation, Less than 24 Consecutive Hours (ICD-10-PCS; 2023-03-16)
PROC: 30233L1 Transfusion of Nonautologous Fresh Plasma into Peripheral Vein, Percutaneous Approach (ICD-10-PCS; 2023-03-16)
PROC: 30233N1 Transfusion of Nonautologous Red Blood Cells into Peripheral Vein, Percutaneous Approach (ICD-10-PCS; 2023-03-16)
PROC: 30233R1 Transfusion of Nonautologous Platelets into Peripheral Vein, Percutaneous Approach (ICD-10-PCS; 2023-03-16)
PROC: 5A0945A Assistance with Respiratory Ventilation, 24-96 Consecutive Hours, High Flow/Velocity Cannula (ICD-10-PCS; 2023-03-17)
PROC: 5A1955Z Respiratory Ventilation, Greater than 96 Consecutive Hours (ICD-10-PCS; 2023-03-19)
PROC: 4A023N7 Measurement of Cardiac Sampling and Pressure, Left Heart, Percutaneous Approach (ICD-10-PCS; principal; 2023-03-20)
PROC: 02100Z9 Bypass Coronary Artery, One Artery from Left Internal Mammary, Open Approach (ICD-10-PCS; 2023-03-20)
PROC: 021109W Bypass Coronary Artery, Two Arteries from Aorta with Autologous Venous Tissue, Open Approach (ICD-10-PCS; 2023-03-20)
PROC: 06BP4ZZ Excision of Right Saphenous Vein, Percutaneous Endoscopic Approach (ICD-10-PCS; 2023-03-20)
PROC: 5A1221Z Performance of Cardiac Output, Continuous (ICD-10-PCS; 2023-03-20)
PROC: 4A00X4Z Measurement of Central Nervous Electrical Activity, External Approach (ICD-10-PCS; 2023-03-20)
PROC: 05H533Z Insertion of Infusion Device into Right Subclavian Vein, Percutaneous Approach (ICD-10-PCS; 2023-03-20)
PROC: B546ZZA Ultrasonography of Right Subclavian Vein, Guidance (ICD-10-PCS; 2023-03-20)
PROC: B2111ZZ Fluoroscopy of Multiple Coronary Arteries using Low Osmolar Contrast (ICD-10-PCS; 2023-03-20)
PROC: B2151ZZ Fluoroscopy of Left Heart using Low Osmolar Contrast (ICD-10-PCS; 2023-03-20)
PROC: B24BZZ4 Ultrasonography of Heart with Aorta, Transesophageal (ICD-10-PCS; 2023-03-20)
PROC: 03B10ZZ Excision of Left Internal Mammary Artery, Open Approach (ICD-10-PCS; 2023-03-20)
PROC: 4A00X4Z Measurement of Central Nervous Electrical Activity, External Approach (ICD-10-PCS; 2023-03-20)
PROC: 4A00X4Z Measurement of Central Nervous Electrical Activity, External Approach (ICD-10-PCS; 2023-03-27)
DX: I21.4 Non-ST elevation (NSTEMI) myocardial infarction (principal); A41.9 Sepsis, unspecified organism; I50.23 Acute on chronic systolic (congestive) heart failure; J18.9 Pneumonia, unspecified organism; J96.01 Acute respiratory failure with hypoxia; K76.7 Hepatorenal syndrome; G92.8 Other toxic encephalopathy; K72.00 Acute and subacute hepatic failure without coma; N17.0 Acute kidney failure with tubular necrosis; S32.010A Wedge compression fracture of first lumbar vertebra, initial encounter for closed fracture; E87.1 Hypo-osmolality and hyponatremia; I42.0 Dilated cardiomyopathy; E87.3 Alkalosis; I13.0 Hypertensive heart and chronic kidney disease with heart failure and stage 1 through stage 4 chronic kidney disease, or unspecified chronic kidney disease; I45.2 Bifascicular block; G93.1 Anoxic brain damage, not elsewhere classified; I46.9 Cardiac arrest, cause unspecified; Z20.822 Contact with and (suspected) exposure to COVID-19; E78.5 Hyperlipidemia, unspecified; M48.061 Spinal stenosis, lumbar region without neurogenic claudication; I25.10 Atherosclerotic heart disease of native coronary artery without angina pectoris; N18.9 Chronic kidney disease, unspecified; E11.22 Type 2 diabetes mellitus with diabetic chronic kidney disease; D63.1 Anemia in chronic kidney disease; R74.01 Elevation of levels of liver transaminase levels; D69.6 Thrombocytopenia, unspecified; E80.6 Other disorders of bilirubin metabolism; E87.6 Hypokalemia; E83.39 Other disorders of phosphorus metabolism; E83.42 Hypomagnesemia; K82.4 Cholesterolosis of gallbladder; I08.1 Rheumatic disorders of both mitral and tricuspid valves; Z66 Do not resuscitate; I25.5 Ischemic cardiomyopathy; Z83.3 Family history of diabetes mellitus; Z87.891 Personal history of nicotine dependence; X58.XXXA Exposure to other specified factors, initial encounter; Y93.89 Activity, other specified; Y92.89 Other specified places as the place of occurrence of the external cause; Y99.8 Other external cause status
CPT/HCPCS: 36415; 36573; 36600; 70551; 71045; 71250; 72146; 72148; 76700; 80048; 80051; 80053; 80061; 80076; 80202; 81003; 82140; 82150; 82248; 82330; 82375; 82550; 82553; 82607; 82728; 82746; 82803; 82805; 82962; 83036; 83540; 83550; 83735; 83880; 84100; 84132; 84145; 84439; 84443; 84484; 85014; 85018; 85025; 85027; 85379; 85384; 86705; 86709; 86803; 86850; 86900; 86920; 86927; 87070; 87340; 87426; 87804; 90732; 93005; 93306; 93308; 93880; 93970; 94002; 94003; 94640; 95816; 97161; 97166; 99285; A6261; C1725; C1729; C1751; C9803; J0690; J0692; J1170; J1265; J1644; J1650; J1815; J1940; J2060; J2185; J2250; J2270; J2370; J2440; J2704; J2720; J2765; J2920; J3010; J3370; J3411; J3475; J3480; J3490; J7050; J7060; L3908; P9016; P9017; P9034; P9041; P9047; Q0163; Q9957; Q9967; A4315